=== PATIENT | female | born 1985 | race Caucasian/White ===

== ENCOUNTER → 2017-12-08 10:46 | Outpatient (CLI) | payer OTHER, SELFPAY ==
[2017-12-08 14:37] LABS: HIV 1 and 2 Antibody NEGATIVE (NEGATIVE); Hep C Virus Ab w/Reflex Quant NEGATIVE s/c (NEGATIVE)
[2017-12-09 15:12] LABS: HSV 2 IGG AB < 0.90 index (< 0.90); HSV1IGG < 0.90 index (< 0.90)
== END ==
DX: Z11.3 Encounter for screening for infections with a predominantly sexual mode of transmission (principal)
CPT/HCPCS: 36415; 86695; 86696; 86703; 86803

== ENCOUNTER → 2020-01-07 11:33 | Outpatient (CLI) | payer OTHER, SELFPAY ==
[2020-01-08 22:36] LABS: HSV I/II IgM 1.64 Ratio (0.00-0.90)
[2020-01-09 16:40] LABS: Hepatitis B Surface Antigen NEGATIVE s/c (NEGATIVE)
[2020-01-09 16:56] LABS: HIV 1 & 2 Ab/Ag 4th Gen Combo NEGATIVE (NEGATIVE); Hep C Virus Ab w/Reflex Quant NEGATIVE s/c (NEGATIVE)
== END ==
PROVIDERS: PCP Nurse Practitioner; Referring Provider Nurse Practitioner; Visit Provider Nurse Practitioner
DX: Z11.3 Encounter for screening for infections with a predominantly sexual mode of transmission (principal)
CPT/HCPCS: 36415; 86694; 86803; 87340; 87389

== ENCOUNTER 2020-11-16 21:01 | Emergency (ER) | payer MEDICAID, SELFPAY ==
[2020-11-16 21:04] VITALS: BP 151/101; PULSE 114; RESP 24; TEMP 37.3; O2SAT 99
--- NOTE | 2020-11-16 21:18 | ED_ITS ---
HPI - Abdominal Pain General Chief Complaint: Abdominal Pain Stated Complaint: ABD Pain Time Seen by Provider: 11/16/20 21:08 Source: patient Mode of arrival: Ambulatory History of Present Illness HPI narrative: The patient is a 35-year-old female with history of anxiety depression ADHD presenting with sudden onset of epigastric pain radiating into her chest. She said started suddenly this evening about 1 hour ago while she was making soap, a hoby of hers. She says pain is quite severe she feels nauseous she thought she could make herself vomit to make it feel better but it did not help. She denies any shortness of breath or palpitations. Never had anything like this in the past. She no fever or chills. Quality: stabbing Radiation: chest Related Data Home Medications Medication Instructions Recorded Confirmed bupropion HCl 150 mg 24 hr tablet, 150 mg PO QAM 01/07/20 08/21/20 extended release (Wellbutrin XL) adderall PO 08/21/20 08/21/20 Previous Rx's Medication Instructions Recorded sertraline 50 mg tablet (Zoloft) 50 mg PO QDAY #30 tab 03/17/19 hydrocodone 5 mg-acetaminophen 325 1 tab PO Q6H PRN #10 tab 11/16/20 mg tablet ondansetron 4 mg disintegrating 4 mg PO Q8H PRN #10 tab 11/16/20 tablet Allergies Allergy/AdvReac Type Severity Reaction Status Date / Time Penicillins [PENICILLINS] Allergy Unknown Verified 11/16/20 21:17 Review of Systems Review of Systems Narrative: GENERAL: Denies chills, fatigue, malaise, fever, sweats, travel HEENT: Denies sinus pain, ear pain, sore throat, difficulty swallowing, neck pain RESPIRATORY: Denies dyspnea, cough, wheezing, hemoptysis, sputum. CARDIOVASCULAR: See HPI GASTROINTESTINAL: See HPI : Denies dysuria, frequency, incontinence, hematuria, urinary retention, flank pain. MUSCULOSKELETAL: Denies weakness, joint pain, or bony pain SKIN: No rash, no erythema, no pruritus NEUROLOGIC: Denies weakness, dizziness, headache, numbness, change in speech, confusion PSYCHIATRIC: No concerning psychosocial issues. 12 point review of systems is negative except for those stated above and HPI Patient History Medical History (Updated 11/16/20 @ 22:33 by Oanh Zuniga DO) Elevated blood pressure reading Social History marital status: unmarried,single Smoking Status: Current every day smoker alcohol intake: current (ON OCCASION ) substance use type: does not use Smoking Status: Current every day smoker Exam Initial Vital Signs Initial Vital Signs: Vital Signs Temperature 99.1 F 11/16/20 21:04 Pulse Rate 114 H 11/16/20 21:04 Respiratory Rate 24 11/16/20 21:04 Blood Pressure 151/101 H 11/16/20 21:04 Pulse Oximetry 99 11/16/20 21:04 GENERAL: Alert 35-year-old female appears uncomfortable in no acute distress. HEENT: Head atraumatic,EOMI, pupils reactive, face symmetric, moist mucous membranes CARDIOVASCULAR: Regular rate and rhythm without murmurs, rubs or gallops. RESPIRATORY: Breath sounds equal bilaterally, no wheezes rales or rhonchi. ABDOMEN: Soft, epigastric pain positive Mo sign no guarding or rebound no lower abdominal quadrant pain : No CVA tenderness EXTREMITIES: Normal range of motion, no clubbing or edema. Neurovascularly in tact NEUROLOGICAL: Alert and oriented x4.Normal gait and speech. SKIN: Warm, dry, no laceration, no petechiae, no rashes or lesions. Course Orders Ordered: ED Orders 11/16/20 21:03 EKG-12 Lead Stat 11/16/20 21:19 US abdomen limited Stat XR chest 1V Stat 11/16/20 21:20 Complete Blood Count AUTO DIFF Stat Comprehensive Metabolic Panel Stat Lipase Stat Troponin & CK Cardiac Panel Stat Discontinued Medications Ketorolac Tromethamine (Ketorolac 30 Mg/Ml Vial) 30 mg IV NOW ONE Stop: 11/16/20 21:30 Last Admin: 11/16/20 21:49 Dose: 30 mg Documented by: JENNIFER Vital Signs Vital signs: Vital Signs - 8 hr 11/16/20 21:04 Temperature 99.1 F Pulse Rate 114 H Respiratory Rate 24 Blood Pressure 151/101 H Pulse Oximetry 99 MDM - Abdominal Pain Lab Data Result diagrams: 11/16/20 21:20 11/16/20 21:20 Labs: Lab Results 11/16/20 11/16/20 11/16/20 Range/Units 21:20 21:20 21:20 WBC 8.7 (4.5-11.0) X10^3/uL RBC 4.83 (4.0-5.2) X10^6/uL Hgb 12.0 (12.0-16.0) g/dL Hct 37.2 (36-46) % MCV 76.9 L (80-100) fL MCH 24.9 L (26-34) PG MCHC 32.3 (30-36) % RDW 15.1 H (11.6-14.8) % Plt Count 207 (150-400) X10^3/uL Neut % (Auto) 70.9 (50-75) % Lymph % (Auto) 20.0 L (25-40) % [place]ois % (Auto) 5.3 (3-14) % Eos % (Auto) 2.7 (2-4) % Baso % (Auto) 1.1 (0-2) % Neut # (Auto) 6100 (3320-8167) /uL Lymph # (Auto) 1700 (4339-0372) /uL [place] # (Auto) 500 (0-900) /uL Eos # (Auto) 200 (0-450) /uL Baso # (Auto) 100 (0-100) /uL Sodium 142 (137-145) mmol/L Potassium 3.9 (3.4-5.1) mmol/L Chloride 105 (98-107) mmol/L Carbon Dioxide 31 (22-32) mmol/L BUN 18 H (7-17) mg/dL Creatinine 0.70 (0.52-1.04) mg/dL Estimated GFR > 60.0 (>60) mL/min BUN/Creatinine Ratio 25.7 H (6-22) Glucose 97 (70-100) mg/dL Calcium 9.8 (8.4-10.2) mg/dL Total Bilirubin 0.4 (0.2-1.3) mg/dL AST 47 H (14-36) IU/L ALT 30 (<35) IU/L Alkaline Phosphatase 95 (38-126) U/L Total Creatine Kinase 129 (30-135) U/L CK-MB (CK-2) 1.58 (<2.37) ng/mL CK-MB (CK-2) Rel Index 1.2 L (1.5-5.0) % Troponin I < 0.012 (0.01-0.034) ng/mL Total Protein 8.3 H (6.3-8.2) g/dL Albumin 4.3 (3.5-5.0) g/dL Globulin 4.0 (1.7-4.1) g/dL Albumin/Globulin Ratio 1.1 (1.0-2.8) Lipase 91 (23-300) U/L Imaging Data US - abdomen: Radiologist's Impression: PROCEDURE: US ABDOMEN LIMITED ? INDICATIONS:? RUQ PAIN ? TECHNIQUE:? Real-time focused scanning was performed of the abdomen, with image documentation.? ? COMPARISON:? None. ? FINDINGS:? Liver is enlarged measuring 20 cm and demonstrates diffusely increased echogenicity.? Multiple calculi within the gallbladder lumen.? No gallbladder wall thickening.? Positive sonographic Mo sign.? No biliary ductal dilatation.? Pancreas grossly unremarkable. ? IMPRESSION:? 1. Cholelithiasis.? No gallbladder wall thickening.? However, a positive sonographic Mo sign is present.? Findings may indicate mild/early cholecystitis in the appropriate clinical setting. 2. Hepatic steatosis. ? ? Dictated by: César North M.D. on 11/16/2020 at 22:12 ? Chest x-ray: Radiologist's Impression: PROCEDURE:? XR CHEST 1V ? INDICATIONS:? chest pain ? TECHNIQUE:? One view of the chest was acquired.? ? COMPARISON:? None. ? FINDINGS:? ? Surgical changes and devices:? None.? ? Lungs and pleura:? Lungs are clear.? No pleural effusions or pneumothorax.? ? Mediastinum:? Mediastinal contours appear normal.? Heart size is normal.? ? Bones and chest wall:? No suspicious bony lesions.? Overlying soft tissues appear unremarkable.? ? IMPRESSION:? No acute pulmonary process. ? ? Dictated by: Oksana Butt M.D. on 11/16/2020 at 21:50 ? ? ECG Data Interpretation: Normal sinus rhythm rate 94 NH interval 156 QRS 96 QTC 437 MDM Narrative Medical decision making narrative: The patient is a 35-year-old female with right upper quadrant pain found to have cholelithiasis without signs of cholecys titis. Normal bilirubin normal LFTs no fever or leukocytosis. At this time patient can have outpatient follow-up. I have discussed with her she will likely need to have a cholecystectomy but at this time can be scheduled as outpatient However I did go over warning signs with her and when to return to the ED. Discharge Plan Departure Patient Disposition: Home Clinical Impression: Cholelithiasis Qualifiers: Cholelithiasis location: gallbladder Cholecystitis presence: without cholecystitis Biliary obstruction: without biliary obstruction Qualified Code(s): K80.20 - Calculus of gallbladder without cholecystitis without obstruction Instructions: DI for Gallstones Activity Restrictions/Additional Instructions: *You have been diagnosed with gallstones *What to do: At this time you are found to have gallstones. You will need to have her gallbladder removed however at this time not an emergency. Please maintain low fat diet this will help control your symptoms. *Continue to take medications as directed--> SENT TO [facility] Motrin 800 mg every 8 hours if needed for [id number] pain Zofran 4 mg every 8 hours if needed for nausea or vomiting [place] 1 tablet every 6 hours only if needed for severe pain *Follow up with your primary care provider in 2-3 days Call surgery tomorrow to schedule follow-up appointment *Return to ER if you should have increasing nausea or vomiting, increasing pain, fever or any new, worsening or concerning symptoms CONTROLLED SUBSTANCE DISCHARGE (Narcotoic/benzodiazepine/Flexeril/Phenergan) 1. You have been prescribed narcotic medications, it does have acetaminophen/Tylenol/paracetamol in it, DO NOT TAKE MORE THAN 4,00mg in 24 hours of Tylenol. TRAMADOL DOES NOT CONTAIN TYLENOL 2. Please understand that we cannot provide further refills of narcotics, benzodiazepines or controlled substances through the ED and her pain management will need to be through your provider. 3. While on these medications you cannot drive or operate heavy machinery. 4. You cannot sign legal documents or perform any duties such as this. 5. As long as you're taking opiate pain medications he should also be taking a stool softener such as Colace, Dulcolax, MiraLAX or prune juice, to help avoid constipation. Prescriptions: New hydrocodone-acetaminophen 5-325 mg tablet 1 tab PO Q6H PRN (Reason: pain) Qty: 10 RF: 0 ondansetron 4 mg tablet,disintegrating 4 mg PO Q8H PRN (Reason: nausea and vomiting) Qty: 10 RF: 0 No Action adderall PO RF: 0 sertraline [Zoloft] 50 mg tablet 50 mg PO QDAY Qty: 30 RF: 0 bupropion HCl [Wellbutrin XL] 150 mg tablet extended release 24 hr 150 mg PO QAM RF: 0 Referrals: [facility] [Provider Group] Allegra Vega ARNP [Primary Care Provider] -
--- NOTE | 2020-11-16 21:19 | DI.US.S_ITS ---
PROCEDURE: US ABDOMEN LIMITED INDICATIONS: RUQ PAIN TECHNIQUE: Real-time focused scanning was performed of the abdomen, with image documentation. COMPARISON: None. FINDINGS: Liver is enlarged measuring 20 cm and demonstrates diffusely increased echogenicity. Multiple calculi within the gallbladder lumen. No gallbladder wall thickening. Positive sonographic Mo sign. No biliary ductal dilatation. Pancreas grossly unremarkable. IMPRESSION: 1. Cholelithiasis. No gallbladder wall thickening. However, a positive sonographic Mo sign is present. Findings may indicate mild/early cholecystitis in the appropriate clinical setting. 2. Hepatic steatosis. Dictated by: César North M.D. on 11/16/2020 at 22:12 Approved by: César North M.D. on 11/16/2020 at 22:14
--- NOTE | 2020-11-16 21:19 | DI.RAD.S_ITS ---
PROCEDURE: XR CHEST 1V INDICATIONS: chest pain TECHNIQUE: One view of the chest was acquired. COMPARISON: None. FINDINGS: Surgical changes and devices: None. Lungs and pleura: Lungs are clear. No pleural effusions or pneumothorax. Mediastinum: Mediastinal contours appear normal. Heart size is normal. Bones and chest wall: No suspicious bony lesions. Overlying soft tissues appear unremarkable. IMPRESSION: No acute pulmonary process. Dictated by: Oksana Butt M.D. on 11/16/2020 at 21:50 Approved by: Oksana Butt M.D. on 11/16/2020 at 21:50
[2020-11-16 21:27] LABS: Add Manual Diff / Slide Review NO; Basophils Absolute Auto 100 /uL (0-100); Basophils Percent Auto 1.1 % (0-2); Eosinophils Absolute Auto 200 /uL (0-450); Eosinophils Percent Auto 2.7 % (2-4); Hematocrit 37.2 % (36-46); Lymphocytes Absolute Auto 1700 /uL (1100-4500); Mean Corpuscular HGB Conc 32.3 % (30-36); Mean Corpuscular Hemoglobin 24.9 PG (26-34); Mean Corpuscular Volume 76.9 fL (80-100); Monocytes Absolute Auto 500 /uL (0-900); Monocytes Percent Auto 5.3 % (3-14); Neutrophils Absolute Auto 6100 /uL (1500-7000); Neutrophils Percent Auto 70.9 % (50-75); Platelet Count 207 X10^3/uL (150-400); Red Blood Cell Count 4.83 X10^6/uL (4.0-5.2); Red Cell Distribution Width 15.1 % (11.6-14.8); White Blood Cell Count 8.7 X10^3/uL (4.5-11.0)
[2020-11-16 21:41] LABS: Alanine Aminotransferase 30 IU/L (<35); Albumin 4.3 g/dL (3.5-5.0); Albumin Globulin Ratio 1.1 (1.0-2.8); Alkaline Phosphatase 95 U/L (38-126); Aspartate Aminotransferase 47 IU/L (14-36); BUN Creatinine Ratio 25.7 (6-22); Bilirubin Total 0.4 mg/dL (0.2-1.3); Blood Urea Nitrogen 18 mg/dL (7-17); Calcium 9.8 mg/dL (8.4-10.2); Carbon Dioxide 31 mmol/L (22-32); Chloride 105 mmol/L (98-107); Creatine Kinase 129 U/L (30-135); Estimated Glomerular Filt Rate > 60.0 mL/min (>60); Glucose 97 mg/dL (70-100); HEMOLYSIS < 15 (0-50); Lipase 91 U/L (23-300); Potassium 3.9 mmol/L (3.4-5.1); Sodium 142 mmol/L (137-145); Total Protein 8.3 g/dL (6.3-8.2)
[2020-11-16] MEDS: KETOROLAC 30 MG/ML VIAL IV (21:49)
[2020-11-16 21:53] LABS: Troponin I < 0.012 ng/mL (0.01-0.034)
[2020-11-16 21:57] LABS: CKMB % Relative Index 1.2 % (1.5-5.0); Creatine Kinase MB 1.58 ng/mL (<2.37)
== END 2020-11-16 22:52 | disposition home or self-care (01) ==
PROVIDERS: Emergency Provider Emergency Medicine; PCP Nurse Practitioner
DX: K80.20 Calculus of gallbladder without cholecystitis without obstruction (principal); R11.0 Nausea; R07.9 Chest pain, unspecified
CPT/HCPCS: 36415; 71045; 76705; 80053; 82550; 82553; 83690; 84484; 85025; 93005; 93010; 96374; 99284; J1885

== ENCOUNTER 2021-03-27 03:02 | Emergency (ER) | payer OTHER, MEDICAID, SELFPAY ==
[2021-03-27 03:10] VITALS: BP 158/86; PULSE 96; RESP 18; TEMP 36.6; O2SAT 100; BMI 50.0
[2021-03-27] MEDS: BUPIVACAINE 0.5% W/ EPI (PF) 30 ML VIAL 5 ML SUBCUT (03:39)
--- NOTE | 2021-03-27 03:39 | ED.DENTAL ---
HPI - Dental/Oral General Chief complaint: Dental/Oral Stated complaint: left tooth/jaw pain Time Seen by Provider: 03/27/21 03:26 Source: patient Mode of arrival: Ambulatory History of Present Illness HPI Narrative: The patient is a 35-year-old female presents with dental pain. She says and on for a while progressively getting worse tonight. She just started clindamycin today. She can not get into a dentist for a while. She has been taking Tylenol and ibuprofen without any relief. Cold water seems to help it. No facial swelling or fever. But tearful due to intense pain. Related Data Home Medications Medication Instructions Recorded Confirmed bupropion HCl 150 mg 24 hr tablet, 150 mg PO QAM 01/07/20 08/21/20 extended release (Wellbutrin XL) adderall PO 08/21/20 08/21/20 Previous Rx's Medication Instructions Recorded sertraline 50 mg tablet (Zoloft) 50 mg PO QDAY #30 tab 03/17/19 hydrocodone 5 mg-acetaminophen 325 1 tab PO Q6H PRN #10 tab 11/16/20 mg tablet ondansetron 4 mg disintegrating 4 mg PO Q8H PRN #10 tab 11/16/20 tablet Allergies Allergy/AdvReac Type Severity Reaction Status Date / Time Penicillins [PENICILLINS] Allergy Unknown Verified 11/16/20 21:17 Review of Systems Review of Systems Narrative: GENERAL: Denies chills,fever HEENT: See HPI RESPIRATORY: Denies dyspnea, cough, wheezing CARDIOVASCULAR: Denies chest pain, palpitations GASTROINTESTINAL: Denies nausea, vomiting MUSCULOSKELETAL: Denies extremity pain, injury SKIN: No rash, no laceration, no pruritus NEUROLOGIC: Denies weakness, dizziness, headache, numbness 8 point review of systems is negative except for those stated above and HPI Patient History Medical History (Updated 03/27/21 @ 03:51 by Oanh Zuniga DO) Elevated blood pressure reading Social History marital status: unmarried,single Smoking Status: Current every day smoker alcohol intake: current (ON OCCASION ) substance use type: does not use Smoking Status: Current every day smoker alcohol intake frequency: a few times a month Substance Use Type: does not use Exam Initial Vital Signs Initial Vital Signs: Vital Signs Temperature 97.9 F 03/27/21 03:10 Pulse Rate 96 H 03/27/21 03:10 Respiratory Rate 18 03/27/21 03:10 Blood Pressure 158/86 H 03/27/21 03:10 Pulse Oximetry 100 03/27/21 03:10 GENERAL: Well-appearing, well-nourished and in no acute distress. CARDIOVASCULAR: peripheral pulses in tact, cap refill <2 sec RESPIRATORY: No respiratory distress, speaks in full sentences without difficulty EXTREMITIES: Normal range of motion, no clubbing or edema. Neurovascularly intact NEUROLOGICAL: Cranial nerves II through XII grossly intact. Normal gait and speech. SKIN: Warm, dry, no petechiae, no rashes or lesions. [facility] Adult Head Mouth w/Numbe Teeth: 1. chronic tooth fracture, no abscess Procedures Nerve Block Nerve Block 1: Local Anesthetic: bupivacaine 0.5% and with epi Amount of anesthesia used (mL): 0.5 Intraoral Nerve Block: supraperiosteal Procedure Successful: Yes Course Orders Ordered: Discontinued Medications Bupivacaine HCl/Epinephrine Bitart (Bupivacaine 0.25% W/ Epi (Pf) 10 Ml Vial) 5 ml SUBCUT NOW ONE Stop: 03/27/21 03:28 Last Admin: 03/27/21 03:40 Dose: Not Given Documented by: Bupivacaine HCl/Epinephrine Bitart (Bupivacaine 0.5% W/ Epi (Pf) 30 Ml Vial) 5 ml SUBCUT NOW ONE Stop: 03/27/21 03:36 Last Admin: 03/27/21 03:39 Dose: 5 ml Documented by: Vital Signs Vital signs: Vital Signs - 8 hr 03/27/21 03:10 Temperature 97.9 F Pulse Rate 96 H Respiratory Rate 18 Blood Pressure 158/86 H Pulse Oximetry 100 MDM - Dental/Oral MDM Narrative Medical decision making narrative: Patient had relief after dental block. No significant swelling or erythema. She is already on antibiotics. Discharge Plan Departure Patient Disposition: Home Clinical Impression: Pain, dental Instructions: DI for Dental Pain, Tooth Fracture Activity Restrictions/Additional Instructions: *You have been diagnosed with dental pain *What to do: At this time please follow-up with dentist. *Continue to take medications as directed Naproxen 500 mg every 12 hours Tylenol 1000 mg every 6 hours if needed Continue to take clindamycin as previously prescribed *Follow up with your primary care provider in 2-3 days or call [phone] *Return to ER if you should have increasing facial swelling redness or pain or any new, worsening or concerning symptoms Prescriptions: No Action adderall PO 0RF sertraline [Zoloft] 50 mg tablet 50 mg PO QDAY Qty: 30 0RF bupropion HCl [Wellbutrin XL] 150 mg tablet extended release 24 hr 150 mg PO QAM 0RF hydrocodone-acetaminophen 5-325 mg tablet 1 tab PO Q6H PRN (Reason: pain) Qty: 10 0RF ondansetron 4 mg tablet,disintegrating 4 mg PO Q8H PRN (Reason: nausea and vomiting) Qty: 10 0RF Referrals: Allegra Vega ARNP [Primary Care Provider] -
== END 2021-03-27 03:54 | disposition home or self-care (01) ==
PROVIDERS: Emergency Provider Emergency Medicine; PCP Nurse Practitioner
DX: K08.89 Other specified disorders of teeth and supporting structures (principal)
CPT/HCPCS: 64450; 99281; 99283

== ENCOUNTER 2021-04-29 23:37 | Emergency (ER) | payer OTHER, MEDICAID, SELFPAY ==
[2021-04-29 23:43] VITALS: BP 180/109; PULSE 94; RESP 18; O2SAT 97
--- NOTE | 2021-04-29 23:48 | DI.US.S_ITS ---
PROCEDURE: US ABDOMEN LIMITED INDICATIONS: RUQ PAIN TECHNIQUE: Real-time focused scanning was performed of the abdomen, with image documentation. COMPARISON: [facility], , US ABDOMEN LIMITED, 11/16/2020, 21:51. FINDINGS: Liver is enlarged and demonstrates increased echogenicity. Gallbladder demonstrates multiple calculi within its lumen. No gallbladder wall thickening. Positive sonographic Mo sign. No biliary ductal dilatation. Pancreas grossly unremarkable. IMPRESSION: 1. Cholelithiasis. 2. Patient demonstrates tenderness overlying the gallbladder, which may indicate mild/early cholecystitis. No evidence of gallbladder wall thickening to indicate cholecystitis. Dictated by: César North M.D. on 04/30/2021 at 0:19 Approved by: César North M.D. on 04/30/2021 at 0:20
[2021-04-30 00:03] LABS: Alanine Aminotransferase 17 IU/L (<35); Albumin 4.2 g/dL (3.5-5.0); Albumin Globulin Ratio 1.1 (1.0-2.8); Alkaline Phosphatase 73 U/L (38-126); Aspartate Aminotransferase 26 IU/L (14-36); BUN Creatinine Ratio 26.9 (6-22); Bilirubin Total 0.4 mg/dL (0.2-1.3); Blood Urea Nitrogen 18 mg/dL (7-17); Calcium 9.3 mg/dL (8.4-10.2); Carbon Dioxide 30 mmol/L (22-32); Chloride 105 mmol/L (98-107); Estimated Glomerular Filt Rate > 60.0 mL/min (>60); Glucose 98 mg/dL (70-100); HEMOLYSIS < 15 (0-50); Lipase 96 U/L (23-300); Potassium 3.8 mmol/L (3.4-5.1); Sodium 139 mmol/L (137-145); Total Protein 8.2 g/dL (6.3-8.2)
[2021-04-30 00:06] LABS: Add Manual Diff / Slide Review NO; Basophils Absolute Auto 100 /uL (0-100); Basophils Percent Auto 0.9 % (0-2); Eosinophils Absolute Auto 300 /uL (0-450); Eosinophils Percent Auto 3.3 % (2-4); Hematocrit 36.1 % (36-46); Hemoglobin 11.8 g/dL (12.0-16.0); Lymphocytes Absolute Auto 2600 /uL (1100-4500); Lymphocytes Percent Auto 27.8 % (25-40); Mean Corpuscular HGB Conc 32.7 % (30-36); Mean Corpuscular Hemoglobin 25.7 PG (26-34); Mean Corpuscular Volume 78.5 fL (80-100); Monocytes Absolute Auto 400 /uL (0-900); Monocytes Percent Auto 4.6 % (3-14); Neutrophils Absolute Auto 5900 /uL (1500-7000); Neutrophils Percent Auto 63.4 % (50-75); Platelet Count 211 X10^3/uL (150-400); Pregnancy Test Serum,Qual Negative (Negative); Red Blood Cell Count 4.59 X10^6/uL (4.0-5.2); Red Cell Distribution Width 15.3 % (11.6-14.8); White Blood Cell Count 9.2 X10^3/uL (4.5-11.0)
--- NOTE | 2021-04-30 00:46 | ED_ITS ---
HPI - General Adult General Chief complaint: Abdominal Pain Stated complaint: gallbladder Time Seen by Provider: 04/29/21 23:48 Source: patient Mode of arrival: Wheelchair Limitations: no limitations History of Present Illness HPI narrative: Patient is a 35-year-old female. Has known cholelithiasis. Was seen here in the emergency department at the end of last year. Had a ultrasound performed. Showed cholelithiasis without signs of acute cholecystitis. Was supposed to follow-up with primary doctor and also General surgery however she had a change in her insurance and this did not happen. She has had small issues with her gallbladder since then but this evening she had an increase in the discomfort. Had vomiting. No change in bowel habits. No urinary symptoms. No vaginal bleeding. Her symptoms have improved since the onset. Related Data Home Medications Medication Instructions Recorded Confirmed bupropion HCl 150 mg 24 hr tablet, 150 mg PO QAM 01/07/20 08/21/20 extended release (Wellbutrin XL) adderall PO 08/21/20 08/21/20 Previous Rx's Medication Instructions Recorded sertraline 50 mg tablet (Zoloft) 50 mg PO QDAY #30 tab 03/17/19 hydrocodone 5 mg-acetaminophen 325 1 tab PO Q6H PRN #10 tab 11/16/20 mg tablet ondansetron 4 mg disintegrating 4 mg PO Q8H PRN #10 tab 11/16/20 tablet hydrocodone 5 mg-acetaminophen 325 1 tab PO Q4-6H PRN #10 tab 04/30/21 mg tablet ondansetron 4 mg disintegrating 4 mg PO Q6-8H PRN #10 tab 04/30/21 tablet Allergies Allergy/AdvReac Type Severity Reaction Status Date / Time Penicillins [PENICILLINS] Allergy Unknown Verified 11/16/20 21:17 Review of Systems Review of Systems ROS Unobtainable: All systems reviewed & are unremarkable except as noted in HPI and below Constitutional Constitutional: Denies fever(s) Cardiovascular Cardiovascular: Reports system reviewed and no additional complaints, except as documented Respiratory Respiratory: Reports system reviewed and no additional complaints, except as documented Gastrointestinal Gastrointestinal: Reports as per HPI and Reports system reviewed and no addit ional complaints, except as documented Genitourinary Genitourinary: Reports system reviewed and no additional complaints, except as documented and Reports as per HPI Integumentary/Breasts Skin/Breast: Reports system reviewed and no additional complaints, except as documented Hematologic/Lymphatic On Anticoagulants: No Patient History Medical History Elevated blood pressure reading Social History marital status: unmarried,single Smoking Status: Current every day smoker alcohol intake: current (ON OCCASION ) substance use type: does not use Smoking Status: Current every day smoker alcohol intake frequency: a few times a month Substance Use Type: does not use Exam Initial Vital Signs Initial Vital Signs: Vital Signs Pulse Rate 94 H 04/29/21 23:43 Respiratory Rate 18 04/29/21 23:43 Blood Pressure 180/109 H 04/29/21 23:43 Pulse Oximetry 97 04/29/21 23:43 Const General: cooperative HENMT Head: normal to inspection Ears: hearing grossly normal bilaterally Resp Effort & Inspection: normal respiratory effort Cardio Rate: regular rate GI Inspection: normal to inspection Palpation: soft, No firm and No tender Skin General: no rashes or lesions noted Neuro General: patient alert, patient awake and moves all extremities Course Orders Ordered: ED Orders 04/29/21 23:46 Complete Blood Count AUTO DIFF Stat Comprehensive Metabolic Panel Stat Lipase Stat Test Serum,Qual Stat 04/29/21 23:48 US abdomen limited Stat Discontinued Medications Hydrocodone Bitart/Acetaminophen (Hydrocodone/Acet 5/325 Prepack) 1 bottle MISC SEEINSTR ONE Stop: 04/30/21 00:51 Last Admin: 04/30/21 00:57 Dose: 1 bottle Documented by: KASSIE Ondansetron HCl (Ondansetron 4 Mg Odt Prepack) 1 bottle MISC SEEINSTR ONE Stop: 04/30/21 00:51 Last Admin: 04/30/21 00:57 Dose: 1 bottle Documented by: KASSIE Vital Signs Vital signs: Vital Signs - 8 hr 04/29/21 23:43 04/30/21 01:02 Pulse Rate 94 H 88 Respiratory Rate 18 Blood Pressure 180/109 H 147/84 H Pulse Oximetry 97 96 Medical Decision Making Medical Records Medical records reviewed: Yes I reviewed the patient's medical records. Lab Data Lab results reviewed: Yes I reviewed the patient's lab results. Result diagrams: 04/29/21 23:46 04/29/21 23:46 Labs: Lab Results 04/29/21 04/29/21 04/29/21 Range/Units 23:46 23:46 23:46 WBC 9.2 (4.5-11.0) X10^3/uL RBC 4.59 (4.0-5.2) X10^6/uL Hgb 11.8 L (12.0-16.0) g/dL Hct 36.1 (36-46) % MCV 78.5 L (80-100) fL MCH 25.7 L (26-34) PG MCHC 32.7 (30-36) % RDW 15.3 H (11.6-14.8) % Plt Count 211 (150-400) X10^3/uL Neut % (Auto) 63.4 (50-75) % Lymph % (Auto) 27.8 (25-40) % [place] % (Auto) 4.6 (3-14) % Eos % (Auto) 3.3 (2-4) % Baso % (Auto) 0.9 (0-2) % Neut # (Auto) 5900 (0020-4068) /uL Lymph # (Auto) 2600 (4228-9203) /uL [place] # (Auto) 400 (0-900) /uL Eos # (Auto) 300 (0-450) /uL Baso # (Auto) 100 (0-100) /uL Sodium 139 (137-145) mmol/L Potassium 3.8 (3.4-5.1) mmol/L Chloride 105 (98-107) mmol/L Carbon Dioxide 30 (22-32) mmol/L BUN 18 H (7-17) mg/dL Creatinine 0.67 (0.52-1.04) mg/dL Estimated GFR > 60.0 (>60) mL/min BUN/Creatinine Ratio 26.9 H (6-22) Glucose 98 (70-100) mg/dL Calcium 9.3 (8.4-10.2) mg/dL Total Bilirubin 0.4 (0.2-1.3) mg/dL AST 26 (14-36) IU/L ALT 17 (<35) IU/L Alkaline Phosphatase 73 (38-126) U/L Total Protein 8.2 (6.3-8.2) g/dL Albumin 4.2 (3.5-5.0) g/dL Globulin 4.0 (1.7-4.1) g/dL Albumin/Globulin Ratio 1.1 (1.0-2.8) Lipase 96 (23-300) U/L Serum , Qual Negative (Negative) Imaging Data US - abdomen: Radiologist's Impression: [address] [address] Ultrasound Report Signed Patient: Miriam Truong MR#: [id number] : 1985 Acct:[id number] Age/Sex: 35 / F Date of Service: 04/29/21 Loc: ED Accession Number: [id number] ?? Procedure: US abdomen limited Ordering Provider: Waldemar Mcarthur D.O. PROCEDURE: US ABDOMEN LIMITED ? INDICATIONS:? RUQ PAIN ? TECHNIQUE:? Real-time focused scanning was performed of the abdomen, with image documentation.? ? COMPARISON:? [facility], [place], US ABDOMEN LIMITED, 11/16/2020, 21:51. ? FINDINGS:? Liver is enlarged and demonstrates increased echogenicity.? Gallbladder demonstrates multiple calculi within its lumen.? No gallbladder wall thickening.? Positive sonographic Mo sign.? No biliary ductal dilatation.? Pancreas grossly unremarkable. ? IMPRESSION:? 1. Cholelithiasis. 2. Patient demonstrates tenderness overlying the gallbladder, which may indicate mild/early cholecystitis.? No evidence of gallbladder wall thickening to indicate cholecystitis. ? ? Dictated by: César North M.D. on 04/30/2021 at 0:19 ? ? Approved by: César North M.D. on 04/30/2021 at 0:20 MDM Narrative Medical decision making narrative: No leukocytosis.Does have cholelithiasis without signs of acute cholecystitis. LFTs and bilirubin all unremarkable. Her symptoms have actually improved from the onset earlier today. Had a discussion with her. I do suspect that her abdominal pain was related to her gallbladder however patient does not need emergent surgery. We did discuss diet that she could try to avoid having issues in the future. She was given information for follow-up with general surgery to have her gallbladder removed as an outpatient. Will treat symptomatically. Was given return precautions. She expressed understanding and agreement. Discharge Plan Departure Patient Disposition: Home Clinical Impression: Cholelithiasis Instructions: Gallstones (Alternative Therapy), DI for Gallstones Activity Restrictions/Additional Instructions: It is important that you establish care with a primary provider. You can contact the call center here at the [facility] with [phone]. I also recommend you contact the surgeons at the number provided below for a follow-up. You may be able to control your symptoms by eating a low-fat/low oil diet. Return to the emergency department for any fevers or worsening symptoms. Prescriptions: New hydrocodone-acetaminophen 5-325 mg tablet 1 tab PO Q4-6H PRN (Reason: pain) Qty: 10 0RF ondansetron 4 mg tablet,disintegrating 4 mg PO Q6-8H PRN (Reason: nausea and vomiting) Qty: 10 0RF No Action adderall PO 0RF sertraline [Zoloft] 50 mg tablet 50 mg PO QDAY Qty: 30 0RF bupropion HCl [Wellbutrin XL] 150 mg tablet extended release 24 hr 150 mg PO QAM 0RF hydrocodone-acetaminophen 5-325 mg tablet 1 tab PO Q6H PRN (Reason: pain) Qty: 10 0RF ondansetron 4 mg tablet,disintegrating 4 mg PO Q8H PRN (Reason: nausea and vomiting) Qty: 10 0RF Referrals: Allegra Vega ARNP [Primary Care Provider] -
[2021-04-30] MEDS: ONDANSETRON 4 MG ODT PREPACK 1 BOTTLE MISC (00:57)
[2021-04-30] MEDS: HYDROCODONE/ACET 5/325 PREPACK 1 BOTTLE MISC (00:57)
[2021-04-30 01:02] VITALS: BP 147/84; PULSE 88; O2SAT 96
== END 2021-04-30 01:05 | disposition home or self-care (01) ==
PROVIDERS: Emergency Provider Emergency Medicine; PCP Nurse Practitioner
DX: K80.20 Calculus of gallbladder without cholecystitis without obstruction (principal)
CPT/HCPCS: 36415; 76705; 80053; 83690; 84703; 85025; 99283

== ENCOUNTER 2021-08-27 16:04 | Emergency (ER) | payer OTHER, MEDICAID, SELFPAY ==
[2021-08-27 16:09] VITALS: BP 136/78; PULSE 86; RESP 16; TEMP 36.9; O2SAT 99; BMI 35.5
--- NOTE | 2021-08-27 16:28 | DI.US.S_ITS ---
PROCEDURE: US ABDOMEN LIMITED INDICATIONS: hx cholelithiasis, RUQ pain, eval duct TECHNIQUE: Real-time scanning was performed of the abdominal and retroperitoneal organs, with image documentation. COMPARISON: [facility], , US ABDOMEN LIMITED, 04/29/2021, 23:52. FINDINGS: Liver: The liver demonstrates diffusely increased echotexture without focal abnormalities consistent with chronic hepatocellular disease/hepatic steatosis. Main portal vein appears patent. Gallbladder: Gallbladder wall contains a possible large gallstone which shadows the posterior wall of the gallbladder. Gallbladder wall measures 5.2 mm in thickness. No pericholecystic fluid. Biliary ducts: Intrahepatic bile ducts are non-dilated. Extrahepatic bile duct caliber measures 5 mm. Normal is 6-7 mm or less in diameter, or 10 mm or less post-cholecystectomy. Pancreas: Visualized portions of the pancreas are sonographically normal. Miscellaneous: No free abdominal fluid. IMPRESSION: 1. Suggestion of large shadowing gallstone with associated gallbladder wall thickening. No pericholecystic fluid. Recommend clinical correlation for focal tenderness. Findings may represent sequela of acute or chronic cholecystitis. 2.The liver demonstrates diffusely increased echotexture without focal abnormalities consistent with chronic hepatocellular disease/hepatic steatosis. Consider correlation with LFTs. Dictated by: Rivas Multani M.D. on 08/27/2021 at 17:17 Approved by: Rivas Multani M.D. on 08/27/2021 at 17:19
--- NOTE | 2021-08-27 16:30 | ED.ABDPAIN ---
HPI - Abdominal Pain <Beth Adams [facility] - Last Filed: 08/27/21 20:12> General Chief Complaint: Abdominal Pain Stated Complaint: Abd pain Time Seen by Provider: 08/27/21 16:22 History of Present Illness HPI narrative: This is a 35-year-old female with history of cholelithiasis, obesity, denies any abdominal surgeries who presents to the emergency department with right upper quadrant pain which she states started this morning with two episodes of vomiting, and denies other symptoms. Patient reports that she has been seen in the emergency department 3 times for this but has not followed up with a general surgeon for cholecystectomy. She denies any recent fever, chills, diarrhea, weakness, diaphoresis, muscle aches or other symptom. Patient endorses right upper quadrant pain, denies any dysuria, reports feeling nauseated, her and her significant other were driving here today but got stuck in traffic so they stopped and called an ambulance to hopefully get to the hospital faster. Patient reports that she has been to [facility] for this a few times, did not go to them today. Related Data Home Medications Medication Instructions Recorded Confirmed bupropion HCl 150 mg 24 hr tablet, 150 mg PO QAM 01/07/20 08/21/20 extended release (Wellbutrin XL) adderall PO 08/21/20 08/21/20 Previous Rx's Medication Instructions Recorded sertraline 50 mg tablet (Zoloft) 50 mg PO QDAY #30 tabs 03/17/19 hydrocodone 5 mg-acetaminophen 325 1 tab PO Q6H PRN pain #10 tabs 11/16/20 mg tablet ondansetron 4 mg disintegrating 4 mg PO Q8H PRN nausea and 11/16/20 tablet vomiting #10 tabs hydrocodone 5 mg-acetaminophen 325 1 tab PO Q4-6H PRN pain #10 tabs 04/30/21 mg tablet ondansetron 4 mg disintegrating 4 mg PO Q6-8H PRN nausea and 04/30/21 tablet vomiting #10 tabs hydrocodone 5 mg-acetaminophen 325 1 tab PO BID PRN pain #10 tabs 08/27/21 mg tablet ondansetron 4 mg disintegrating 4 mg PO Q8H PRN nausea and 08/27/21 tablet vomiting #10 tabs Allergies Allergy/AdvReac Type Severity Reaction Status Date / Time Penicillins [PENICILLINS] Allergy Unknown Verified 11/16/20 21:17 Review of Systems <KHOA Friedman - Last Filed: 08/27/21 20:12> Review of Systems Narrative: General: denies fever, chills, malaise, sweats, fatigue Head/Neck: denies headache, neck pain, dizziness Eyes: denies visual changes, eye pain Cardio: denies chest pain, palpitations, edema Respiratory: denies dyspnea, cough, orthopnea GI: Endorses right upper quadrant abdominal pain with nausea and vomiting that started today, denies diarrhea : denies dysuria, hematuria, urinary retention, frequency or incontinence MSK: denies joint pain, muscle weakness Skin: denies rash, itching, skin lesions or other Neuro: denies numbness, tingling Patient History <KHOA Friedman - Last Filed: 08/27/21 20:12> Medical History Elevated blood pressure reading Social History marital status: unmarried,single Smoking Status: Current every day smoker alcohol intake: current (ON OCCASION ) substance use type: does not use Smoking Status: Current every day smoker alcohol intake frequency: a few times a month Substance Use Type: does not use Exam <KHOA Friedman - Last Filed: 08/27/21 20:12> Narrative Exam Narrative: Independently reviewed vitals signs and nursing notes. General: cooperative, comfortable, in no acute distress, well groomed Head: atraumatic, symmetrical facial expressions Neck: supple Eyes: equal round and reactive, EOMI, conjunctiva normal Nose: nares patent, no rhinorrhea Mouth/Throat: moist mucus membranes Cardiovascular: regular rate and rhythm, no peripheral edema, warm extremities Respiratory: normal effort, able to speak in complete sentences, no audible wheezing, stridor, or rales. No retractions or tachypnea. GI: abdomen soft, nontender to palpation, nondistended, no masses, no exquisite tenderness with exam, without guarding or rebound. MSK: moves all extremities, neurovascularly intact, no weakness, normal tone Skin: brisk capillary refill, no rash, no erythema Neuro: normal speech and cognition, A&O x3 Psych: mental status is grossly normal, congruent mood, normal affect, pleasant and cooperative Initial Vital Signs Initial Vital Signs: Vital Signs Temperature 98.4 F 08/27/21 16:09 Pulse Rate 86 08/27/21 16:09 Respiratory Rate 16 08/27/21 16:09 Blood Pressure 136/78 08/27/21 16:09 Pulse Oximetry 99 08/27/21 16:09 Oxygen Delivery Method 08/27/21 16:09 <Cali Olsen MD - Last Filed: 09/14/21 12:38> Initial Vital Signs Initial Vital Signs: Vital Signs Temperature 98.4 F 08/27/21 16:09 Pulse Rate 86 08/27/21 16:09 Respiratory Rate 16 08/27/21 16:09 Blood Pressure 136/78 08/27/21 16:09 Pulse Oximetry 99 08/27/21 16:09 Oxygen Delivery Method 08/27/21 16:09 Course <KHOA Friedman - Last Filed: 08/27/21 20:12> Orders Ordered: Discontinued Medications Ketorolac Tromethamine (Ketorolac 30 Mg/Ml Vial) 15 mg IV NOW ONE Stop: 08/27/21 16:29 Last Admin: 08/27/21 17:03 Dose: 15 mg Documented By: KYLEE Ondansetron HCl (Ondansetron 4 Mg/2 Ml Inj) 4 mg IV NOW ONE Stop: 08/27/21 16:29 Last Admin: 08/27/21 17:03 Dose: 4 mg Documented By: KYLEE Vital Signs Vital signs: Vital Signs - 8 hr 08/27/21 16:09 08/27/21 18:27 Temperature 98.4 F Pulse Rate 86 88 Respiratory Rate 16 14 Blood Pressure 136/78 120/73 Pulse Oximetry 99 97 Oxygen Delivery Method Room Air Room Air <Cali Olsen MD - Last Filed: 09/14/21 12:38> Orders Ordered: Discontinued Medications Ketorolac Tromethamine (Ketorolac 30 Mg/Ml Vial) 15 mg IV NOW ONE Stop: 08/27/21 16:29 Last Admin: 08/27/21 17:03 Dose: 15 mg Documented By: KYLEE Ondansetron HCl (Ondansetron 4 Mg/2 Ml Inj) 4 mg IV NOW ONE Stop: 08/27/21 16:29 Last Admin: 08/27/21 17:03 Dose: 4 mg Documented By: KYLEE Vital Signs Vital signs: Vital Signs - 8 hr 08/27/21 16:09 08/27/21 18:27 Temperature 98.4 F Pulse Rate 86 88 Respiratory Rate 16 14 Blood Pressure 136/78 120/73 Pulse Oximetry 99 97 Oxygen Delivery Method Room Air Room Air MDM - Abdominal Pain <KHOA Friedman - Last Filed: 08/27/21 20:12> Lab Data Result diagrams: 08/27/21 16:20 08/27/21 16:20 Labs: Lab Results 08/27/21 08/27/21 Range/Units 16:20 16:20 WBC 8.8 (4.5-11.0) X10^3/uL RBC 4.59 (4.0-5.2) X10^6/uL Hgb 12.0 (12.0-16.0) g/dL Hct 36.1 (36-46) % MCV 78.6 L (80-100) fL MCH 26.1 (26-34) PG MCHC 33.2 (30-36) % RDW 16.1 H (11.6-14.8) % Plt Count 197 (150-400) X10^3/uL Neut % (Auto) 76.8 H (50-75) % Lymph % (Auto) 16.3 L (25-40) % [place] % (Auto) 3.9 (3-14) % Eos % (Auto) 2.4 (2-4) % Baso % (Auto) 0.6 (0-2) % Neut # (Auto) 6800 (8695-3328) /uL Lymph # (Auto) 1400 (1624-9315) /uL [place] # (Auto) 300 (0-900) /uL Eos # (Auto) 200 (0-450) /uL Baso # (Auto) 100 (0-100) /uL Sodium 139 (137-145) mmol/L Potassium 3.9 (3.4-5.1) mmol/L Chloride 104 (98-107) mmol/L Carbon Dioxide 26 (22-32) mmol/L BUN 13 (7-17) mg/dL Creatinine 0.76 (0.52-1.04) mg/dL Estimated GFR > 60 (>60) mL/min BUN/Creatinine Ratio 17.1 (6-22) Glucose 100 (70-100) mg/dL Calcium 9.1 (8.4-10.2) mg/dL Total Bilirubin 0.4 (0.2-1.3) mg/dL AST 50 H (14-36) IU/L ALT 34 (<35) IU/L Alkaline Phosphatase 77 (38-126) U/L Total Protein 8.1 (6.3-8.2) g/dL Albumin 4.4 (3.5-5.0) g/dL Globulin 3.7 (1.7-4.1) g/dL Albumin/Globulin Ratio 1.2 (1.0-2.8) Lipase 55 (23-300) U/L Imaging Data US - abdomen: Radiologist's Impression: PROCEDURE:? US ABDOMEN LIMITED ? INDICATIONS:? hx cholelithiasis, RUQ pain, eval duct ? TECHNIQUE:? Real-time scanning was performed of the abdominal and retroperitoneal organs, with image documentation.? ? COMPARISON:? [facility], , US ABDOMEN LIMITED, 04/29/2021, 23:52. ? FINDINGS:? ? Liver:? The liver demonstrates diffusely increased echotexture without focal abnormalities consistent with chronic hepatocellular disease/hepatic steatosis.? Main portal vein appears patent. ? Gallbladder:? Gallbladder wall contains a possible large gallstone which shadows the posterior wall of the gallbladder.? Gallbladder wall measures 5.2 mm in thickness.? No pericholecystic fluid.? ? Biliary ducts:? Intrahepatic bile ducts are non-dilated.? Extrahepatic bile duct caliber measures 5 mm.? Normal is 6-7 mm or less in diameter, or 10 mm or less post-cholecystectomy.? ? Pancreas:? Visualized portions of the pancreas are sonographically normal.? ? Miscellaneous:? No free abdominal fluid.? ? ? IMPRESSION:? ? 1. Suggestion of large shadowing gallstone with associated gallbladder wall thickening.? No pericholecystic fluid.? Recommend clinical correlation for focal tenderness.? Findings may represent sequela of acute or chronic cholecystitis. ? 2.The liver demonstrates diffusely increased echotexture without focal abnormalities consistent with chronic hepatocellular disease/hepatic steatosis. Consider correlation with LFTs. ? ? Dictated by: Rivas Multani M.D. on 08/27/2021 at 17:17 ? ? Approved by: Rivas Multani M.D. on 08/27/2021 at 17:19 ? [facility] Narrative Medical decision making narrative: This is a 35-year-old female presents to the emergency department with right upper quadrant pain over the last few days with history of cholelithiasis. She is an obese female, has history of cholelithiasis x3. Lab work today does not show any leukocytosis, chemistry is unremarkable with mildly elevated AST of 50, no elevation to T bilirubin or lipase. Ultrasound of her right upper quadrant shows large shadowing gallstone with associated gallbladder wall thickening, no pericholecystic fluid, gallbladder wall measures 5.2 mm in thickness, intrahepatic bile ducts are nondilated, extrahepatic bile duct caliber measures [address] Vigil who states that patient can follow-up with him in the clinic for outpatient consultation. Patient's pain is under control, she denies any nausea at this time. She was given Toradol and Zofran in the emergency department without any other medications. She was given a prescription of hydrocodone for breakthrough pain, encouraged to eat a low-fat diet and to follow-up with Dr. Vigil for cholecystectomy. Patient is appropriate and amenable to discharge home. Vital signs are stable on repeat examination is unremarkable. Patient has been informed of results. Patient has been given strict return to ER precautions for any new or worsening symptoms. Patient understands to follow up closely with outpatient providers as instructed. Patient understands plan and agrees to discharge home. All questions and concerns answered at this time. <Cali Olsen MD - Last Filed: 09/14/21 12:38> Lab Data Labs: Lab Results 08/27/21 08/27/21 Range/Units 16:20 16:20 WBC 8.8 (4.5-11.0) X10^3/uL RBC 4.59 (4.0-5.2) X10^6/uL Hgb 12.0 (12.0-16.0) g/dL Hct 36.1 (36-46) % MCV 78.6 L (80-100) fL MCH 26.1 (26-34) PG MCHC 33.2 (30-36) % RDW 16.1 H (11.6-14.8) % Plt Count 197 (150-400) X10^3/uL Neut % (Auto) 76.8 H (50-75) % Lymph % (Auto) 16.3 L (25-40) % [place] % (Auto) 3.9 (3-14) % Eos % (Auto) 2.4 (2-4) % Baso % (Auto) 0.6 (0-2) % Neut # (Auto) 6800 (2637-5890) /uL Lymph # (Auto) 1400 (1535-0170) /uL [place] # (Auto) 300 (0-900) /uL Eos # (Auto) 200 (0-450) /uL Baso # (Auto) 100 (0-100) /uL Sodium 139 (137-145) mmol/L Potassium 3.9 (3.4-5.1) mmol/L Chloride 104 (98-107) mmol/L Carbon Dioxide 26 (22-32) mmol/L BUN 13 (7-17) mg/dL Creatinine 0.76 (0.52-1.04) mg/dL Estimated GFR > 60 (>60) mL/min BUN/Creatinine Ratio 17.1 (6-22) Glucose 100 (70-100) mg/dL Calcium 9.1 (8.4-10.2) mg/dL Total Bilirubin 0.4 (0.2-1.3) mg/dL AST 50 H (14-36) IU/L ALT 34 (<35) IU/L Alkaline Phosphatase 77 (38-126) U/L Total Protein 8.1 (6.3-8.2) g/dL Albumin 4.4 (3.5-5.0) g/dL Globulin 3.7 (1.7-4.1) g/dL Albumin/Globulin Ratio 1.2 (1.0-2.8) Lipase 55 (23-300) U/L Discharge Plan Departure Patient Disposition: Home Clinical Impression: Cholecystitis Instructions: Eating a Diet Low in Saturated Fat, Trans Fat, and Cholesterol, Gallstones, DI for Cholecystitis Activity Restrictions/Additional Instructions: *You have been diagnosed with cholecystitis. This is inflammation of your gallbladder wall. You also have a large gallstone in there but it does not appear to be obstructing. Please avoid any fatty food over the next few days, stay hydrated, take anti-inflammatories and Tylenol every 6 hours as needed for your pain. I have called in some hydrocodone and Zofran to the [facility] in [place], I hope that you have an hol weekend, follow-up with Dr. Vigil from General surgery at [facility] next week. It is okay if it is a different surgeon, call the number that is listed and asked to make an appointment for follow-up from the emergency department for your cholecystitis. If you have any worsening of your pain, fever, nausea vomiting not controlled with the medication, please return to the emergency department. *What to do: *Please continue to take your regular medications as directed. [ x] New medication prescriptions sent to your pharmacy: [[facility] ] [ ] New medication written as a paper prescription [ ] No new medications given *Please follow up with your primary care provider in 2-3 days, call for an appointment. Let them know you were seen in the Emergency Department and that we asked that you be seen for follow-up. We will electronically transmit a record of today's note if your PCP is in our system *If you do not have a primary care provider please contact [phone] to establish care with one of the [facility] primary care providers. *Return to Emergency Department if you should have any new, worsening or concerning symptoms, such as [fever greater than 101F, chills, worsening pain, persistent vomiting or other bothersome symptoms] Prescriptions: New hydrocodone-acetaminophen 5-325 mg tablet 1 tab PO BID PRN (Reason: pain) Qty: 10 0RF ondansetron 4 mg tablet,disintegrating 4 mg PO Q8H PRN (Reason: nausea and vomiting) Qty: 10 0RF No Action adderall PO sertraline [Zoloft] 50 mg tablet 50 mg PO QDAY Qty: 30 0RF bupropion HCl [Wellbutrin XL] 150 mg tablet extended release 24 hr 150 mg PO QAM hydrocodone-acetaminophen 5-325 mg tablet 1 tab PO Q6H PRN (Reason: pain) Qty: 10 0RF ondansetron 4 mg tablet,disintegrating 4 mg PO Q8H PRN (Reason: nausea and vomiting) Qty: 10 0RF hydrocodone-acetaminophen 5-325 mg tablet 1 tab PO Q4-6H PRN (Reason: pain) Qty: 10 0RF ondansetron 4 mg tablet,disintegrating 4 mg PO Q6-8H PRN (Reason: nausea and vomiting) Qty: 10 0RF Referrals: Sourav Vigil MD [Physician] - Visit Report Forms: Patient Portal/API <Cali Olsen MD - Last Filed: 09/14/21 12:38> Cosign ED Attending Markature Attestation: I was immediately available for consultation of this patient was seen and evaluated by the APC in the department.
[2021-08-27 16:42] LABS: Add Manual Diff / Slide Review NO; Basophils Absolute Auto 100 /uL (0-100); Basophils Percent Auto 0.6 % (0-2); Eosinophils Absolute Auto 200 /uL (0-450); Eosinophils Percent Auto 2.4 % (2-4); Hematocrit 36.1 % (36-46); Lymphocytes Absolute Auto 1400 /uL (1100-4500); Lymphocytes Percent Auto 16.3 % (25-40); Mean Corpuscular HGB Conc 33.2 % (30-36); Mean Corpuscular Hemoglobin 26.1 PG (26-34); Mean Corpuscular Volume 78.6 fL (80-100); Monocytes Absolute Auto 300 /uL (0-900); Monocytes Percent Auto 3.9 % (3-14); Neutrophils Absolute Auto 6800 /uL (1500-7000); Neutrophils Percent Auto 76.8 % (50-75); Platelet Count 197 X10^3/uL (150-400); Red Blood Cell Count 4.59 X10^6/uL (4.0-5.2); Red Cell Distribution Width 16.1 % (11.6-14.8); White Blood Cell Count 8.8 X10^3/uL (4.5-11.0)
[2021-08-27 16:43] LABS: Alanine Aminotransferase 34 IU/L (<35); Albumin 4.4 g/dL (3.5-5.0); Albumin Globulin Ratio 1.2 (1.0-2.8); Alkaline Phosphatase 77 U/L (38-126); Aspartate Aminotransferase 50 IU/L (14-36); BUN Creatinine Ratio 17.1 (6-22); Bilirubin Total 0.4 mg/dL (0.2-1.3); Blood Urea Nitrogen 13 mg/dL (7-17); Calcium 9.1 mg/dL (8.4-10.2); Carbon Dioxide 26 mmol/L (22-32); Chloride 104 mmol/L (98-107); Estimated Glomerular Filt Rate > 60 mL/min (>60); Globulin 3.7 g/dL (1.7-4.1); Glucose 100 mg/dL (70-100); HEMOLYSIS < 15 (0-50); Lipase 55 U/L (23-300); Potassium 3.9 mmol/L (3.4-5.1); Sodium 139 mmol/L (137-145); Total Protein 8.1 g/dL (6.3-8.2)
[2021-08-27] MEDS: ONDANSETRON 4 MG/2 ML INJ IV (17:03)
[2021-08-27] MEDS: KETOROLAC 30 MG/ML VIAL 15 MG IV (17:03)
[2021-08-27 18:27] VITALS: BP 120/73; PULSE 88; RESP 14; O2SAT 97
== END 2021-08-27 18:29 | disposition home or self-care (01) ==
PROVIDERS: Emergency Provider Nurse Practitioner Critical Care Medicine
DX: K81.9 Cholecystitis, unspecified (principal)
CPT/HCPCS: 76705; 80053; 83690; 85025; 96374; 96375; 99283; 99284; J1885; J2405

== ENCOUNTER → 2021-10-12 11:21 | Outpatient (CLI) | payer OTHER, MEDICAID, SELFPAY ==
[2021-10-12 12:38] LABS: COVID19 -Nasal RAPID Negative (Negative)
== END ==
PROVIDERS: PCP Nurse Practitioner Family; Visit Provider Surgery
DX: Z20.822 Contact with and (suspected) exposure to COVID-19 (principal); Z01.812 Encounter for preprocedural laboratory examination
CPT/HCPCS: 87635; C9803

== ENCOUNTER → 2021-10-13 07:35 | Day surgery (SDC) | payer OTHER, MEDICAID, SELFPAY ==
[2021-10-11 08:36] VITALS: BMI 47.0
[2021-10-13] VITALS (11 sets, daily range): BP systolic 119–172; BP diastolic 74–102; PULSE 72–96; RESP 12–20; TEMP 35.8–36.2; O2SAT 84–98; BMI 46.7
--- NOTE | 2021-10-13 | PATH_ITS ---
[facility] Accession Number: [id number] . 01 Material submitted: . gallbladder - GALLBLADDER . 01 Clinical history: . cholecytitis,unspecified . 01 Diagnosis: Gallbladder, Cholecystectomy: Cholelithiasis. One benign cystic duct lymph node. No evidence of neoplasm. V 10/15/2021 1445 Local . 01 Electronically signed: . Iglesia Mckinnon MD, PhD, Pathologist NPI- [id number] . 01 Gross description: . Received in formalin labeled with the patient's name and gallbladder consists of an intact gallbladder measuring 12.8 x 4.0 x 3.5 cm with a dusky mckeon serosal surface and a rough and unremarkable hepatic surface. The cystic duct is received closed with clamps, is inked blue, and a barrera lymph node candidate is identified measuring 1.7 cm in greatest dimension. Opening the specimen reveals numerous yellow faceted calculi admixed with green mucoid bile obstructing the cystic duct. The calculi measure up to 2.7 cm in greatest dimension. The mucosa is green and trabecular with no areas of yellow discoloration, polyps, or lesions identified. The coughlin average 0.1 cm thick. Litigation Support Analyst sections to include the cystic duct margin, one-half of the lymph node candidate, and representative phlebotomy services full-thickness sections are submitted in cassettes A1-A2. ([id number]) /V 10/14/2021 1543 Local . 01 Pathologist provided ICD-10: K80.70 . 01 CPT . 816346 Specimen Comment: A courtesy copy of this report has been sent to [phone] Performed at: 01 [facility] [address] [place] [address], [place], [place] [id number] MD Willis Elder MD Phone: [phone]
[2021-10-13] MEDS: LACTATED RINGERS 1,000 ML 100 ML IV ×2 (08:41→11:30)
--- NOTE | 2021-10-13 08:42 | PM.PREOP ---
Pre-operative Note Interval Note History & Physical reviewed/Exam performed by Physician: Yes Changes to H&P: No
[2021-10-13] MEDS: CLINDAMYCIN 900 MG/50 ML PIGGYBACK 50 MG IV (08:57)
[2021-10-13] MEDS: ACETAMINOPHEN IV 1,000 MG/100 ML VIAL 400 MG IV (09:04)
--- NOTE | 2021-10-13 09:38 | SUR.OPER ---
Supine on padded OR bed, head on pillow, safety belt at thigh, left arm padded and tucked at side. Right arm secured on padded arm board <90 degrees abduction. Legs uncrossed. Padded footboard in place. Gel pad placed under bilateral heels. Tape over blanket to secure lower legs.
[2021-10-13] MEDS: ONDANSETRON 4 MG/2 ML INJ IV (10:27)
--- NOTE | 2021-10-13 10:35 | PM.OP.1 ---
Operative Date/Time/Diagnoses Date of procedure: 10/13/21 Time of procedure: 10:35 Pre-op diagnosis: Biliary colic Post-op diagnosis: same Procedure & Clinicians Procedure: Laparoscopic cholecystectomy Same procedure as scheduled: Yes Indications: Symptoms and radiographic findings consistent with biliary colic Surgeon: Sourav Vigil Click Yes if Unassisted: Yes Anesthesia Type: General Operative Notes Findings: Large stone filled gallbladder. Critical view of safety established Specimen(s): other (Gallbladder) Estimated Blood Loss (mL): 50 Procedure in detail: The patient was placed supine on the table and bilateral lower extremity compression devices were applied. Anesthesia was induced they were intubated with an endotracheal tube and received clindamycin. A time-out was performed. They were prepped and draped in sterile fashion. An infraumbilical incision was made, the umbilical stalk was elevated and the fascia was sharply incised entering the abdomen atraumatically. A blunt tip 12mm balloon trocar was then inserted, pneumoperitoneum was established and inspection of the abdomen demonstrated no evidence of injury. They were placed head up and right side up and then a 11 mm port was placed high in the epigastrium and two 5mm in the right upper quadrant. The gallbladder was grasped by the fundus and retracted over the liver and retracted laterally by the infundibulum. Using electrocautery the lateral plane between the gallbladder and the liver was opened towards the fundus. The gallbladder was then retracted laterally and the medial plane was developed in the same manner. With the gallbladder mobilized the bottom of the cystic plate was visualized. The hepatocystic triangle was meticulosly skeletonized of all fat and fibrous tissue from both the front and the back. Only two structures were then clearly seen entering the gallbladder the cystic duct and the cystic artery. With the critical view of safety fully established the cystic duct was clipped twice proximally and once distally using the 10 mm Weck hemo clip applied under direct visualization and then sharply divided. The cystic artery was divided in the same fashion. The gallbladder was removed from the liver bed using electro cautery. The liver bed was then inspected for hemostasis and this was achieved. The abdomen was irrigated with sterile saline and inspection was made that showed the clips in good position. The specimen was removed using Endo-Catch. The abdomen was desufflated. The umbilical fascia was closed with 0 Vicryl in a [id number] fashion under direct visualization. Skin incisions were irrigated and closed with 4-0 Monocryl. 30 ml of 0.25% bupivacaine was infiltrated into the subcutaneous tissue of the incisions. The wounds were sealed with Dermabond. Patient emerged from anesthesia was extubated and transferred to recovery in stable condition. The sponge and instrument count at the end of the operation was correct. Complications: none Post-operative Condition: stable Disposition: same day surgery
[2021-10-13] MEDS: OXYCODONE IR 5 MG TABLET PO (10:42)
--- NOTE | 2021-10-13 11:05 | SUR.PHASEI ---
1110 - Patient taken to phase 2 by phase 2 staff. Placed on pulse oximeter to monitor oxygen status.
--- NOTE | 2021-10-13 11:23 | SUR.PHASEII ---
Addendum entered by Michelle Zapata R.N. 10/13/21 11:25: Pt placed back on 2L NC oxygen as patient requests to take a nap. Pain 05/06. Original Note: Pt transfered to OPD. SBAR report from Edilma VILLEDA. Pt awake and drowsy. Room air sat while awake 97%. When patient fell asleep O2 sat down to 87-88%. Pt lungs clear, effective C&DB done. Tolerating oral fluids.
== END | disposition home or self-care (01) ==
PROVIDERS: PCP Nurse Practitioner Family; Referring Provider Surgery; Visit Provider Surgery
PROC: 0FT44ZZ Resection of Gallbladder, Percutaneous Endoscopic Approach (ICD-10-PCS; CPT 47562; principal; 2021-10-13 08:45)
DX: K80.20 Calculus of gallbladder without cholecystitis without obstruction (principal); E66.01 Morbid (severe) obesity due to excess calories; F17.210 Nicotine dependence, cigarettes, uncomplicated; Z68.42 Body mass index [BMI] 45.0-49.9, adult; I10 Essential (primary) hypertension
CPT/HCPCS: 47562; 00790; 81025; 82962; J0131; J1100; J1170; J1885; J2405; J2704

== ENCOUNTER 2022-10-26 21:45 | Emergency (ER) | payer OTHER, MEDICAID, SELFPAY ==
[2022-10-26 21:50] VITALS: BP 165/90; PULSE 90; RESP 18; TEMP 36.4; O2SAT 96; BMI 48.4
[2022-10-26 22:06] VITALS: BP 160/94; PULSE 83; O2SAT 95
[2022-10-26 22:23] LABS: Add Manual Diff / Slide Review NO; Basophils Absolute Auto 100 /uL (0-100); Basophils Percent Auto 1.3 % (0-2); Eosinophils Absolute Auto 200 /uL (0-450); Eosinophils Percent Auto 3.8 % (2-4); Hematocrit 37.4 % (36-46); Hemoglobin 12.8 g/dL (12.0-16.0); Lymphocytes Absolute Auto 3100 /uL (1100-4500); Lymphocytes Percent Auto 47.9 % (25-40); Mean Corpuscular HGB Conc 34.2 % (30-36); Mean Corpuscular Volume 81.7 fL (80-100); Monocytes Absolute Auto 500 /uL (0-900); Monocytes Percent Auto 7.1 % (3-14); Neutrophils Absolute Auto 2600 /uL (1500-7000); Neutrophils Percent Auto 39.9 % (50-75); Platelet Count 181 X10^3/uL (150-400); Red Blood Cell Count 4.57 X10^6/uL (4.0-5.2); Red Cell Distribution Width 13.5 % (11.6-14.8); White Blood Cell Count 6.4 X10^3/uL (4.5-11.0)
--- NOTE | 2022-10-26 22:26 | DI.CT.S_ITS ---
PROCEDURE: CT ABDOMEN PELVIS W CON INDICATIONS: left sided pain TECHNIQUE: After the administration of intravenous contrast, axial sections acquired from the lung bases to the pubic symphysis. Coronal and sagittal reformats were performed. For radiation dose reduction, the following was used: automated exposure control, adjustment of mA and/or kV according to patient size. COMPARISON: None. FINDINGS: Image quality: Excellent. Lung bases: Unremarkable. Heart: No significant findings. ABDOMEN: Liver: Unremarkable. Gallbladder: Absent. Biliary ducts: Unremarkable. Pancreas: Unremarkable. Spleen: Unremarkable. Adrenal Glands: Unremarkable. Kidneys and Ureters: Unremarkable. Stomach and Bowel: Stomach, small bowel loops, and colon are unremarkable. Normal appendix. No diverticular disease Peritoneum: No abnormal intraperitoneal fluid. No free air. Ventral Wall: Small umbilical hernia containing fat. Abdominal Nodes: No retroperitoneal or mesenteric adenopathy by size criteria. Vessels: Aorta and inferior vena cava are normal in size. PELVIS: Pelvic Organs: Unremarkable. Bladder: Unremarkable. Pelvic Nodes: No enlarged lymph nodes. Miscellaneous: No hernias are seen. Bones: Unremarkable. IMPRESSION: No acute abnormality. No nephrolithiasis. No diverticular disease. Normal appendix. Dictated by: Jonh Tierney M.D. on 10/26/2022 at 23:09 Approved by: Jonh Tierney M.D. on 10/26/2022 at 23:12
--- NOTE | 2022-10-26 22:26 | ED.BACK ---
HPI - Back Pain/Injury General Chief Complaint: Back Pain/Injury Stated Complaint: back/flank/kidney pain Time Seen by Provider: 10/26/22 22:05 Source: patient History of Present Illness HPI Narrative: Patient is a 36-year-old female significant past medical history presenting with left-sided back pain radiating around to her front. She reports it has been all day it is relatively controlled with Tylenol and ibuprofen. No nausea or vomiting. She is no history of kidney stones. She reports that her pain is about a 3 or 4 after ibuprofen prior to arrival. No fever or chills. No lower abdominal pain. She denies any chest pain shortness of breath recent travel or control. Related Data Home Medications Medication Instructions Recorded Confirmed cholecalciferol (vitamin D3) See Rx Instructions .Route .COMPLEX 09/17/21 11/19/21 [Vitamin D3] dextroamphetamine-amphetamine 15 15 mg PO DAILY 09/17/21 11/19/21 mg tablet (Adderall) dextroamphetamine-amphetamine ER 20 mg PO DAILY 09/17/21 11/19/21 20 mg 24hr capsule,extend release (Adderall XR) ferrous sulfate [High Potency Iron] See Rx Instructions .Route .COMPLEX 09/17/21 11/19/21 lisinopril 30 mg tablet 30 mg PO DAILY 09/17/21 11/19/21 Previous Rx's Medication Instructions Recorded sertraline 50 mg tablet (Zoloft) 50 mg PO QDAY #30 tabs 03/17/19 acetaminophen 325 mg capsule 650 mg PO QID PRN pain #60 caps 10/13/21 (Tylenol) ibuprofen 200 mg tablet 400 mg PO Q6H #60 tabs 10/13/21 Allergies Allergy/AdvReac Type Severity Reaction Status Date / Time Penicillins [PENICILLINS] Allergy Unknown Verified 11/19/21 09:15 Review of Systems Review of Systems ROS Unobtainable: All systems reviewed & are unremarkable except as noted in HPI and below Patient History Medical History ADHD Anxiety Depression Elevated blood pressure reading Hypertension Family History Father Hypertension Heart disease Grandfather Hypertension Heart disease Grandmother Diabetes mellitus Stroke Mother Colon cancer Social History (Reviewed 08/30/23 @ 22:32 by ANDRY Ayon marital status: unmarried,single household members: significant other Smoking Status: Current every day smoker alcohol intake: current substance use type: does not use Smoking Status: Current every day smoker alcohol intake frequency: a few times a month Substance Use Type: marijuana Exam Initial Vital Signs Initial Vital Signs: Vital Signs Temperature 97.5 F L 10/26/22 21:50 Pulse Rate 90 10/26/22 21:50 Respiratory Rate 18 10/26/22 21:50 Blood Pressure 165/90 H 10/26/22 21:50 Pulse Oximetry 96 10/26/22 21:50 Oxygen Delivery Method Room Air 10/26/22 21:50 GENERAL: Alert pleasant 36-year-old female BMI 48 HEENT: Head atraumatic,EOMI, pupils reactive, face symmetric, [moist] mucous membranes CARDIOVASCULAR: Regular rate and rhythm without murmurs, rubs or gallops. RESPIRATORY: Breath sounds equal bilaterally, no wheezes rales or rhonchi. ABDOMEN: Soft, mild tenderness in left upper quadrant no guarding no rebound : No CVA tenderness EXTREMITIES: Normal range of motion, no clubbing or edema. Neurovascularly intact NEUROLOGICAL: Alert and oriented x4 SKIN: Warm, dry, no laceration, no petechiae, no rashes or lesions. Course Orders Ordered: ED Orders 10/26/22 22:14 CBC Auto Diff [Complete Blood Count AUTO DIFF] Stat CMP [Comprehensive Metabolic Panel] Stat Lipase Stat 10/26/22 22:26 CT abdomen pelvis w con Stat Vital Signs Vital signs: Vital Signs - 8 hr 10/26/22 21:50 10/26/22 22:06 10/26/22 22:06 Temperature 97.5 F L Pulse Rate 90 83 Respiratory Rate 18 Blood Pressure 165/90 H 160/94 H Pulse Oximetry 96 95 Oxygen Delivery Method Room Air Room Air 10/26/22 23:34 10/26/22 23:35 10/26/22 23:35 Temperature Pulse Rate 80 Respiratory Rate Blood Pressure 130/65 Pulse Oximetry 95 95 Oxygen Delivery Method Room Air Room Air MDM - Back Pain/Injury Lab Data 10/26/22 22:14 10/26/22 22:14 Labs: Lab Results 10/26/22 10/26/22 Range/Units 22:14 22:14 WBC 6.4 (4.5-11.0) X10^3/uL RBC 4.57 (4.0-5.2) X10^6/uL Hgb 12.8 (12.0-16.0) g/dL Hct 37.4 (36-46) % MCV 81.7 (80-100) fL MCH 28.0 (26-34) PG MCHC 34.2 (30-36) % RDW 13.5 (11.6-14.8) % Plt Count 181 (150-400) X10^3/uL Neut % (Auto) 39.9 L (50-75) % Lymph % (Auto) 47.9 H (25-40) % [place] % (Auto) 7.1 (3-14) % Eos % (Auto) 3.8 (2-4) % Baso % (Auto) 1.3 (0-2) % Neut # (Auto) 2600 (7514-1284) /uL Lymph # (Auto) 3100 (7390-9228) /uL [place] # (Auto) 500 (0-900) /uL Eos # (Auto) 200 (0-450) /uL Baso # (Auto) 100 (0-100) /uL Sodium 140 (137-145) mmol/L Potassium 3.8 (3.4-5.1) mmol/L Chloride 106 (98-107) mmol/L Carbon Dioxide 27 (22-32) mmol/L BUN 13 (7-17) mg/dL Creatinine 0.64 (0.52-1.04) mg/dL Estimated GFR > 60 (>60) mL/min BUN/Creatinine Ratio 20.3 (6-22) Glucose 95 (70-100) mg/dL Calcium 9.2 (8.4-10.2) mg/dL Total Bilirubin 0.3 (0.2-1.3) mg/dL AST 26 (14-36) IU/L ALT 22 (<35) IU/L Alkaline Phosphatase 57 (38-126) U/L Total Protein 7.9 (6.3-8.2) g/dL Albumin 4.1 (3.5-5.0) g/dL Globulin 3.8 (1.7-4.1) g/dL Albumin/Globulin Ratio 1.1 (1.0-2.8) Lipase 75 (23-300) U/L Point of Care Testing Test Results Negative Urine Dip Bedside Urine Glucose Negative Bedside Urine Bilirubin - Negative Bedside Urine Ketone - Negative Urine Specific [place] 1.015 Bedside Urine Occult Blood - Negative Bedside Urine pH 6.0 Bedside Urine Protein - Negative Bedside Urine Urobilinogen - Negative Bedside Urine Nitrite - Negative Bedside Urine Leukocytes - Negative Esterase Imaging Data CT scan - abdomen/pelvis: Radiologist's Impression: PROCEDURE:? CT ABDOMEN PELVIS W CON ? INDICATIONS:? left sided pain ? TECHNIQUE:? After the administration of intravenous contrast, axial sections acquired from the lung bases to the pubic symphysis.? Coronal and sagittal reformats were performed.? For radiation dose reduction, the following was used:? automated exposure control, adjustment of mA and/or kV according to patient size.? ? COMPARISON:? None. ? FINDINGS:? Image quality:? Excellent.? ? Lung bases:? Unremarkable. Heart:? No significant findings. ? ABDOMEN: Liver:? Unremarkable.? ? Gallbladder:? Absent.? ? Biliary ducts:? Unremarkable.? ? Pancreas:? Unremarkable.? ? Spleen:? Unremarkable.? ? Adrenal Glands:? Unremarkable.? ? Kidneys and Ureters:? Unremarkable.? ? ? Stomach and Bowel:? Stomach, small bowel loops, and colon are unremarkable.? Normal appendix.? No diverticular disease? Peritoneum:? No abnormal intraperitoneal fluid.? No free air.? ? Ventral Wall: ? Small umbilical hernia containing fat. Abdominal Nodes:? No retroperitoneal or mesenteric adenopathy by size criteria.? Vessels:? Aorta and inferior vena cava are normal in size.? ? PELVIS: Pelvic Organs:? Unremarkable.? ? Bladder:? Unremarkable.? ? Pelvic Nodes: No enlarged lymph nodes.? Miscellaneous: No hernias are seen. ? ? ? Bones:? Unremarkable.? IMPRESSION:? No acute abnormality. ? No nephrolithiasis.? No diverticular disease.? Normal appendix.? ? Dictated by: Jonh Tierney M.D. on 10/26/2022 at 23:09? [facility] Narrative Medical decision making narrative: Patient 36-year-old presents left-sided back pain radiating around to her front. It is not quite in her flank area or kidney stones are necessarily reproducible with palpation she does not remember any specific injury. Blood work is overall reassuring without any significant abnormalities it has all been reviewed. CT is also been reviewed which also does not show any cause of pain. Probably a musculoskeletal type strain. Not requiring any pain medications and overall appears well. Discharge Plan Departure Patient Disposition: Home Clinical Impression: Back pain Instructions: DI for Constipation Activity Restrictions/Additional Instructions: *You have been diagnosed with constipation *What to do: At this time CT and blood work overall reassuring. *Continue to take medications as directed *Follow up with your primary care provider in 2-3 days or call [phone] *Return to ER if you should have increasing pain nausea vomiting fever or any new, worsening or concerning symptoms Prescriptions: No Action sertraline [Zoloft] 50 mg tablet 50 mg PO QDAY Qty: 30 0RF dextroamphetamine-amphetamine [Adderall XR] 20 mg capsule,extended release 24hr 20 mg PO DAILY dextroamphetamine-amphetamine [Adderall] 15 mg tablet 15 mg PO DAILY lisinopril 30 mg tablet 30 mg PO DAILY ferrous sulfate [High Potency Iron] See Rx Instructions .ROUTE .COMPLEX Rx Instructions: as ordered cholecalciferol (vitamin D3) [Vitamin D3] See Rx Instructions .ROUTE .COMPLEX Rx Instructions: depression ibuprofen 200 mg tablet 400 mg PO Q6H Qty: 60 0RF acetaminophen [Tylenol] 325 mg capsule 650 mg PO QID PRN (Reason: pain) Qty: 60 0RF Referrals: Sara Daniels ARNP [Primary Care Provider] - Stand Alone Forms: Patient Portal/API
[2022-10-26 22:33] LABS: Alanine Aminotransferase 22 IU/L (<35); Albumin 4.1 g/dL (3.5-5.0); Albumin Globulin Ratio 1.1 (1.0-2.8); Alkaline Phosphatase 57 U/L (38-126); Aspartate Aminotransferase 26 IU/L (14-36); BUN Creatinine Ratio 20.3 (6-22); Bilirubin Total 0.3 mg/dL (0.2-1.3); Blood Urea Nitrogen 13 mg/dL (7-17); Calcium 9.2 mg/dL (8.4-10.2); Carbon Dioxide 27 mmol/L (22-32); Chloride 106 mmol/L (98-107); Estimated Glomerular Filt Rate > 60 mL/min (>60); Globulin 3.8 g/dL (1.7-4.1); Glucose 95 mg/dL (70-100); HEMOLYSIS < 15 (0-50); Lipase 75 U/L (23-300); Potassium 3.8 mmol/L (3.4-5.1); Sodium 140 mmol/L (137-145); Total Protein 7.9 g/dL (6.3-8.2)
[2022-10-26 23:34] VITALS: O2SAT 95
[2022-10-26 23:35] VITALS: BP 130/65; PULSE 80; O2SAT 95
== END 2022-10-26 23:39 | disposition home or self-care (01) ==
PROVIDERS: Emergency Provider Emergency Medicine; PCP Nurse Practitioner Family
DX: M54.9 Dorsalgia, unspecified (principal); R10.9 Unspecified abdominal pain
CPT/HCPCS: 36415; 74177; 80053; 81003; 81025; 83690; 85025; 99284; Q9967

== ENCOUNTER 2022-10-28 17:29 | Emergency (ER) | payer OTHER, MEDICAID, SELFPAY ==
[2022-10-28 18:01] VITALS: BP 172/92; PULSE 105; RESP 16; TEMP 36.7; O2SAT 97; BMI 48.4
--- NOTE | 2022-10-28 18:05 | DI.RAD.S_ITS ---
PROCEDURE: XR ACUTE ABDOMEN SERIES INDICATIONS: abd pain with constipation TECHNIQUE: One view chest and two views of the abdomen were acquired. COMPARISON: [facility], CT, CT ABDOMEN PELVIS W CON, 10/26/2022, 22:42. FINDINGS: Surgical changes and devices: None. Chest: Lungs are clear. Heart size is normal. No pleural effusions. No pneumoperitoneum. Abdomen: Bowel gas pattern is normal. No suspicious calcifications. Visualized solid organ contours appear normal. Bones: No suspicious bony lesions. IMPRESSION: No acute cardiopulmonary abnormality. Nonobstructive bowel gas pattern. Dictated by: Efrme Logan M.D. on 10/28/2022 at 19:04 Approved by: Efrem Logan M.D. on 10/28/2022 at 19:05
[2022-10-28 20:11] VITALS: BP 171/93; PULSE 87; TEMP 37; O2SAT 93
[2022-10-28] MEDS: KETOROLAC 30 MG/ML VIAL IM (22:38)
--- NOTE | 2022-10-28 23:06 | ED_ITS ---
HPI - Abdominal Pain General Chief Complaint: Abdominal Pain Stated Complaint: Back/ABD pain Time Seen by Provider: 10/28/22 21:03 Source: patient Mode of arrival: Ambulatory Limitations: no limitations History of Present Illness HPI narrative: 36-year-old female with history of ADHD, hypertension, anxiety and obesity who presents with persistent back pain in the thoracic area at the level of the diaphragm wrapping around. Patient states she was seen here 2 days ago, her pain has been persistent. She states she had a workup and was told that she was full of stool. She states she took some stool softener and fiber and was able to have a large bowel movement. Patient states pain has not gotten any better it has been persistent. She states it is not really any worse with movement. She denies any trauma or injuries. 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 She has not really slept or had any rest. She states no fevers, no syncope, no headache or chest pain. She states feels like it is level of the lower ribs but not any higher. She is no pleuritic pain or pain with inhalation. She states it does not radiate farther down words. She has not noticed any rash or skin changes. She denies black or bloody stools she states she is had a large bowel movement since taking all the medications help her stool. Patient states it was soft and well formed. She denies dysuria, urgency or frequency. No vaginal bleeding or discharge. No lower pelvic pain. Patient states she has not had similar symptoms in the past. She has tried some Tylenol. She takes Adderall and sertraline and lisinopril daily. She would a cholecystectomy and a year ago. She does use tobacco daily, occasional alcohol, uses marijuana but no recreational or IV drugs. Related Data Home Medications Medication Instructions Recorded Confirmed cholecalciferol (vitamin D3) See Rx Instructions .Route .COMPLEX 09/17/21 11/19/21 [Vitamin D3] dextroamphetamine-amphetamine 15 15 mg PO DAILY 09/17/21 11/19/21 mg tablet (Adderall) dextroamphetamine-amphetamine ER 20 mg PO DAILY 09/17/21 11/19/21 20 mg 24hr capsule,extend release (Adderall XR) ferrous sulfate [High Potency Iron] See Rx Instructions .Route .COMPLEX 09/17/21 11/19/21 lisinopril 30 mg tablet 30 mg PO DAILY 09/17/21 11/19/21 Previous Rx's Medication Instructions Recorded sertraline 50 mg tablet (Zoloft) 50 mg PO QDAY #30 tabs 03/17/19 acetaminophen 325 mg capsule 650 mg PO QID PRN pain #60 caps 10/13/21 (Tylenol) ibuprofen 200 mg tablet 400 mg PO Q6H #60 tabs 10/13/21 Allergies Allergy/AdvReac Type Severity Reaction Status Date / Time Penicillins [PENICILLINS] Allergy Unknown Verified 11/19/21 09:15 Review of Systems Review of Systems ROS Unobtainable: All systems reviewed & are unremarkable except as noted in HPI and below Patient History Medical History ADHD Anxiety Depression Elevated blood pressure reading Hypertension Family History Father Hypertension Heart disease Grandfather Hypertension Heart disease Grandmother Diabetes mellitus Stroke Mother Colon cancer Social History marital status: unmarried,single household members: significant other Smoking Status: Current every day smoker alcohol intake: current substance use type: does not use Smoking Status: Current every day smoker alcohol intake frequency: a few times a month Substance Use Type: marijuana Exam Narrative Exam Narrative: GEN: Obese well-appearing female, alert and oriented x 3, patient appears to be in moderate distress. Patient expresses a lot of frustration becomes tearful during evaluation. HEENT: Atraumatic, pupils are equal round reactive to light, extraocular movements are intact, nares are clear, there is no conjunctival pallor. Throat is clear without any exudates, erythema, tonsillar enlargement or uvular deviation HEART: Regular rate and rhythm without murmur, clicks, rubs. No carotid bruits, pulses are equal in upper and lower extremities LUNGS:Lungs clear to auscultation, no wheezes, rales, crackles, chest moves symmetrically ABD:bowel sounds normal, soft, mild epigastric tenderness, no guarding, rebound, rigidity, no masses noted, no hepatosplenomegaly, no bruit or pulsatile mass. :No CVA tenderness MSCL: Non-tender, no muscle atrophy, muscles strength 5/5 upper and lower extremities, full range of motion, normal gait BACK: No cervical, thoracic or lumbar vertebral point tenderness. Patient has mildly decreased range of motion. Patient's gait is normal. Muscle strength is 5/5 in upper and lower extremities, cap refill less than 5 seconds bilateral lower extremities. Normal sensation throughout upper and lower extremities. NEURO:CN 2-12 intact, sensation normal SKIN: No Rash, erythema or other skin changes. Initial Vital Signs Initial Vital Signs: Vital Signs Temperature 98.1 F 10/28/22 18:01 Pulse Rate 105 H 10/28/22 18:01 Respiratory Rate 16 10/28/22 18:01 Blood Pressure 172/92 H 10/28/22 18:01 Pulse Oximetry 97 10/28/22 18:01 Oxygen Delivery Method Room Air 10/28/22 18:01 Course Orders Ordered: Discontinued Medications Hydrocodone Bitart/Acetaminophen (Hydrocodone/Acet 5/325 Prepack) 1 bottle MISC SEEINSTR ONE Stop: 10/28/22 23:40 Last Admin: 10/28/22 23:55 Dose: 1 bottle Documented By: THERESA Ketorolac Tromethamine (Ketorolac 30 Mg/Ml Vial) 30 mg IM NOW ONE Stop: 10/28/22 22:31 Last Admin: 10/28/22 22:38 Dose: 30 mg Documented By: THERESA Vital Signs Vital signs: Vital Signs - 8 hr 10/28/22 23:19 Pulse Rate 83 Blood Pressure 169/94 H Pulse Oximetry 95 Oxygen Delivery Method Room Air MDM - Abdominal Pain Imaging Data Abdominal x-ray: Radiologist's Impression: [address] [address] XRay Report Signed Patient: Miriam Truong MR#: [id number] : 1985 Acct:[id number] Age/Sex: 36 / F Date of Service: 10/28/22 Loc: ED Accession Number: [id number] ?? Procedure: XR acute abdomen series Ordering Provider: Ric Brown D.O. PROCEDURE:? XR ACUTE ABDOMEN SERIES ? INDICATIONS:? abd pain with constipation ? TECHNIQUE:? One view chest and two views of the abdomen were acquired.? ? COMPARISON:? [facility], CT, CT ABDOMEN PELVIS W CON, 10/26/2022, 22:42. ? FINDINGS:? ? Surgical changes and devices:? None.? ? Chest:? Lungs are clear.? Heart size is normal.? No pleural effusions.? No pneumoperitoneum.? ? Abdomen:? Bowel gas pattern is normal.? No suspicious calcifications.? Visualized solid organ contours appear normal.? ? Bones:? No suspicious bony lesions.? ? IMPRESSION:? No acute cardiopulmonary abnormality. Nonobstructive bowel gas pattern. ? ? Dictated by: Efrem Logan M.D. on 10/28/2022 at 19:04 ? ? Approved by: Efrem Logan M.D. on 10/28/2022 at 19:05?? MDM Narrative Medical decision making narrative: 36-year-old female who re-presents for lower thoracic back pain that radiates around to the front patient was seen in ED 10/26/22. She does not appreciate a lot of change with movement. She had a dose of Toradol which was moderately helpful. She is seen here on the had CT abdomen pelvis, labs and workup which showed no clear acute cause. Patient's examination is overall reassuring she has some mild discomfort on palpation but has good range of motion. Discussed with patient would like to repeat labs and repeat imaging of chest and abdomen for further evaluation she somewhat hypertensive. After discussion patient is quite frustrated with her stay and states she does not want to stay any longer. She was open to a dose of oral pain medication, we discussed return precautions patient elects to return home. She was not open to repeating lab work and/or imaging or other workup. Patient compresses lot of frustration she has not had much sleep lately and has not had any rash she is been working several double shifts at work. Discussed return precautions. All questions answered. Patient expressed that she would return if symptoms are worsening or not improving. Discharge Plan Departure Patient Disposition: Home Clinical Impression: Back pain Instructions: DI for Thoracic Back Pain Activity Restrictions/Additional Instructions: I would recommend some additional workup today your symptoms may be from her back and musculoskeletal in nature but there are some other potential causes that should be ruled out. Can take ibuprofen up to 600 mg every 6 hours as needed for pain. If in adequate you can add narcotic pain medication. You can take [place] 1-2 tablets every 6 hours as needed for pain. This medication can make you sleepy do not drive, perform hazardous activities or make any major decisions while taking it. This medication will make you constipated please take a stool softener once to twice daily until stools are soft and regular. Please return for fevers, rapidly worsening abdominal back or flank pain, vomiting, black or bloody stools, passing out, new chest pain, shortness of breath or other new or concerning changes. Prescriptions: No Action sertraline [Zoloft] 50 mg tablet 50 mg PO QDAY Qty: 30 0RF dextroamphetamine-amphetamine [Adderall XR] 20 mg capsule,extended release 24hr 20 mg PO DAILY dextroamphetamine-amphetamine [Adderall] 15 mg tablet 15 mg PO DAILY lisinopril 30 mg tablet 30 mg PO DAILY ferrous sulfate [High Potency Iron] See Rx Instructions .ROUTE .COMPLEX Rx Instructions: as ordered cholecalciferol (vitamin D3) [Vitamin D3] See Rx Instructions .ROUTE .COMPLEX Rx Instructions: depression ibuprofen 200 mg tablet 400 mg PO Q6H Qty: 60 0RF acetaminophen [Tylenol] 325 mg capsule 650 mg PO QID PRN (Reason: pain) Qty: 60 0RF Referrals: Sara Daniels ARNP [Primary Care Provider] - Stand Alone Forms: Patient Portal/API, Work Release Note
[2022-10-28 23:19] VITALS: BP 169/94; PULSE 83; O2SAT 95
[2022-10-28] MEDS: HYDROCODONE/ACET 5/325 PREPACK 1 BOTTLE MISC (23:55)
== END 2022-10-28 23:58 | disposition home or self-care (01) ==
PROVIDERS: Emergency Provider Emergency Medicine; PCP Nurse Practitioner Family
DX: M54.6 Pain in thoracic spine (principal)
CPT/HCPCS: 74022; 96372; 99283; J1885

== ENCOUNTER → 2024-02-01 10:08 | Outpatient (CLI) | payer OTHER, SELFPAY ==
[2024-02-01 10:54] LABS: Add Manual Diff / Slide Review NO; Basophils Absolute Auto 100 /uL (0-100); Basophils Percent Auto 1.4 % (0-2); Eosinophils Absolute Auto 300 /uL (0-450); Eosinophils Percent Auto 4.3 % (2-4); Hematocrit 39.7 % (36-46); Hemoglobin 13.4 g/dL (12.0-16.0); Lymphocytes Absolute Auto 1700 /uL (1100-4500); Lymphocytes Percent Auto 27.4 % (25-40); Mean Corpuscular HGB Conc 33.7 % (30-36); Mean Corpuscular Hemoglobin 28.2 PG (26-34); Mean Corpuscular Volume 83.6 fL (80-100); Monocytes Absolute Auto 400 /uL (0-900); Monocytes Percent Auto 5.6 % (3-14); Neutrophils Absolute Auto 3900 /uL (1500-7000); Neutrophils Percent Auto 61.3 % (50-75); Platelet Count 224 X10^3/uL (150-400); Red Blood Cell Count 4.75 X10^6/uL (4.0-5.2); Red Cell Distribution Width 13.7 % (11.6-14.8); White Blood Cell Count 6.3 X10^3/uL (4.5-11.0)
[2024-02-01 11:03] LABS: Hemoglobin A1C% w Est Avg Glu 5.3 % (4.0-6.0)
[2024-02-01 11:17] LABS: Alanine Aminotransferase 28 IU/L (<35); Albumin 4.1 g/dL (3.5-5.0); Albumin Globulin Ratio 1.2 (1.0-2.8); Alkaline Phosphatase 75 U/L (38-126); Aspartate Aminotransferase 34 IU/L (14-36); BUN Creatinine Ratio 22.8 (6-22); Bilirubin Total 0.5 mg/dL (0.2-1.3); Blood Urea Nitrogen 13 mg/dL (7-17); Calcium 9.2 mg/dL (8.4-10.2); Carbon Dioxide 28 mmol/L (22-32); Chloride 103 mmol/L (98-107); Cholesterol 159 mg/dL (140-199); Estimated Glomerular Filt Rate > 60 mL/min (>60); Globulin 3.3 g/dL (1.7-4.1); Glucose 100 mg/dL (70-100); HDL Cholesterol 47 mg/dL (40-60); HEMOLYSIS < 15 (0-50); LDL Cholesterol Calculated 88 mg/dL (<100); Potassium 4.3 mmol/L (3.4-5.1); Sodium 136 mmol/L (137-145); Total Protein 7.4 g/dL (6.3-8.2); Triglycerides 120 mg/dL (35-150)
== END ==
PROVIDERS: PCP Family Medicine; Referring Provider Family Medicine; Visit Provider Family Medicine
DX: I10 Essential (primary) hypertension (principal); Z79.899 Other long term (current) drug therapy; Z13.220 Encounter for screening for lipoid disorders; Z51.81 Encounter for therapeutic drug level monitoring; Z13.1 Encounter for screening for diabetes mellitus; Z68.43 Body mass index [BMI] 50.0-59.9, adult
CPT/HCPCS: 36415; 80053; 80061; 83036; 85025

== ENCOUNTER → 2024-08-19 10:50 | Outpatient (CLI) | payer OTHER, SELFPAY ==
[2024-08-19 12:07] LABS: Thyroid Stimulating Hormone 21.3 uIU/mL (0.47-4.68)
[2024-08-19 15:47] LABS: Free T3, Triiodothyronine Free 3.92 pg/mL (2.77-5.27); Free T4, Direct Thyroxine 0.68 ng/dL (0.78-2.19)
[2024-08-21 16:09] LABS: Anti Thyroglobulin Antibody >2250.0 IU/mL (0.0-0.9); Thyroid Peroxidase Antibodies >600 IU/mL (0-34)
== END ==
PROVIDERS: Family Provider Family Medicine; PCP Family Medicine; Referring Provider Family Medicine; Visit Provider Family Medicine
DX: Z13.29 Encounter for screening for other suspected endocrine disorder (principal); Z68.43 Body mass index [BMI] 50.0-59.9, adult; R79.89 Other specified abnormal findings of blood chemistry
CPT/HCPCS: 36415; 84439; 84443; 84481; 86376; 86800

== ENCOUNTER → 2024-09-16 15:33 | Outpatient (CLI) | payer OTHER, SELFPAY ==
[2024-09-16 17:41] LABS: Thyroid Stimulating Hormone 7.29 uIU/mL (0.47-4.68)
== END ==
PROVIDERS: Family Provider Family Medicine; PCP Family Medicine; Referring Provider Family Medicine; Visit Provider Family Medicine
DX: E03.9 Hypothyroidism, unspecified (principal); Z68.43 Body mass index [BMI] 50.0-59.9, adult
CPT/HCPCS: 36415; 84443

== ENCOUNTER → 2024-11-25 15:38 | Outpatient (CLI) | payer OTHER, SELFPAY ==
[2024-11-25 17:38] LABS: TSH w/ Reflex to FT4 14.00 uIU/mL (0.47-4.68)
[2024-11-25 18:26] LABS: Free T4, Direct Thyroxine 0.76 ng/dL (0.78-2.19)
== END ==
PROVIDERS: Family Provider Family Medicine; PCP Family Medicine; Referring Provider Family Medicine; Visit Provider Family Medicine
DX: E03.9 Hypothyroidism, unspecified (principal)
CPT/HCPCS: 84439; 84443

== ENCOUNTER 2025-01-22 11:10 | Day surgery (SDC) | payer OTHER, SELFPAY ==
[2025-01-21 13:18] VITALS: BMI 51.5
[2025-01-22] VITALS (7 sets, daily range): BP systolic 121–144; BP diastolic 65–87; PULSE 84–92; RESP 14–17; TEMP 36.1–36.3; O2SAT 94–96
--- NOTE | 2025-01-22 11:54 | PM.PREOP ---
Pre-operative Note COVID-19 COVID-19 status: Not tested Interval Note History & Physical reviewed/Exam performed by Physician: Yes Changes to H&P: No
[2025-01-22] MEDS: LACTATED RINGERS 1,000 ML 42 ML IV (12:03)
[2025-01-22] MEDS: LIDOCAINE 1% 20 ML INJ (13:10)
--- NOTE | 2025-01-22 13:28 | SUR.OPER ---
Supine on padded OR bed, head on pillow, left arm secured on padded arm boards at <90 degrees abduction, legs uncrossed, safety belt at thigh, tape over blanket over lower legs. right arm was put on the hand table
--- NOTE | 2025-01-28 12:18 | P.OP_ITS ---
Operative Date/Time/Diagnoses Date of procedure: 01/22/25 Time of procedure: 12:45 Pre-op diagnosis: Right carpal tunnel syndrome Post-op diagnosis: same Procedure & Clinicians Procedure: Open right carpal tunnel release Same procedure(s) as scheduled: Yes Surgeon: Beth Sesay Assisted?: Yes [employer] Operator: Daya Butt Anesthesia Type: MAC +/- Operative Notes Findings: See below Closure Type: primary Specimen(s): none sent Applied: none Estimated Blood Loss (mL): 1 Blood products transfused: none Procedure in detail: Preoperative diagnosis: Carpal Tunnel Syndrome Procedure performed: Carpal Tunnel Release, Open Postoperative diagnosis: Same Primary Surgeon: Beth Sesay DO Assistnat: Daya Butt PA-C Anesthesia: Local & MAC EBL: 1 ml Tourniquet: 19 minutes @ 200 mmHg Indication For Surgery: Patient presented with signs and symptoms of carpal tunnel syndrome. Conservative treatment did not result in adequate symptom improvement. The risks, benefits, and alternatives were discussed. Risks include pain, bleeding, infection, damage to nearby structures, pillar pain, wound healing complications, thumb weakness, numbness, lack of symptom relief, need for further surgery, DVT, PE, stroke, and . Written consent was obtained. Operative Findings: Thickened transverse carpal ligament was released. No carpal tunnel masses. Procedure in Detail: The patient was met in the pre-operative hold area. Consent was verified and operative extremity was signed. The patient then met with anesthesia and was brought back to the operating room. The patient was placed supine on the operating table. Anesthetic was administered. The extremity was then prepped and draped in the usual sterile fashion. A timeout was performed per protocol. All were in agreement local anesthesia was injected (8 cc of 1% lidocaine plain/0.5% Marcaine). and we proceeded. A 3cm longitudinal incision was made in line with the ulnar border of the ring finger starting at Patel's Cardinal line distally. This was just radial to the hook of the hamate. Sharp dissection was brought down through the palmar fascia. Retractors were placed. The transverse carpal ligament was identified and a knife was used to incise it longitudinally until fat was seen distally in the palm. Tenotomy scissors were then used to create a pocket just superficial to the transverse carpal ligament and a freer was placed. The scissors were then placed deep to the ligament to bluntly separate the contents of the canal from ligament. I then pointed the tips of the scissors ulnarly and completed the release 2 cm into the antebrachial fascia. A freer elevator was used to confirm complete release both proximally and distally. The wound was then irrigated copiously and closed with 4-0 nylon in a horizontal mattress configuration. A sterile bulky dressing was applied. Complications: none Post-operative Condition: stable Disposition: PACU
== END 2025-01-22 14:58 | disposition home or self-care (01) ==
PROVIDERS: Family Provider Family Medicine; PCP Family Medicine; Referring Provider Orthopaedic Surgery; Visit Provider Orthopaedic Surgery
PROC: (CPT 64721; principal; 2025-01-22 12:45)
DX: G56.01 Carpal tunnel syndrome, right upper limb (principal)
CPT/HCPCS: 64721; 81025; J0687; J0689; J1885; J2250; J2405; J2704; J3010; J7120